=== PATIENT | female | born 1940 | race Caucasian/White ===

== ENCOUNTER 2018-11-14 10:17 | Observation (INO) ==
[~2018-11-14 10:17] MED LIST: CLINDAMYCIN 600 MG/54 ML BAG IV SCH; LR 15ML/HR IV SCH
--- NOTE | 2018-11-14 10:46 | History & Physical Bridge Note ---
Date of Service November 14, 2018 History & Physical Bridge Note I have examined the patient, reviewed the History & Physical and in the interval since the performance of the History & Physical I have noted the following changes of clinical significance: no changes noted
--- NOTE | 2018-11-14 10:47 | Pre Anesthesia Assessment ---
Date of Service November 14, 2018 Pre Sedation Assessment Cardiovascular + regular rhythm and + bradycardic Respiratory normal respiratory effort, lungs clear to auscultation Pre-Sedation Airway Assessment Smoking Status: Never smoker Hx Sleep Apnea: No Hx Difficult Intubation: No Short, Thick Neck: No Thyromental Distance: < 3.5 Finger Breadths Oral Cavity: + WNL Mallampati Class: II ASA: ASA3 Procedure Planning Contraindications for Sedation: none Current Medications Reviewed: Yes Notes The planned sedation has been discussed with the patient. Informed Consent was obtained. I have identified the patient, determined the appropriateness of sedation and have assessed the patient immediately prior to the procedure. All medicine(s) and interventions are by my order.
[2018-11-14] MEDS ORDERED: BUPIVACAINE 0.5 % 5 MG/1 ML PF 10ML VIAL ONE (11:10)
[2018-11-14] MEDS ORDERED: BACITRACIN INJ 50,000 UNIT VIAL ONE (11:10)
[2018-11-14] MEDS ORDERED: LIDOCAINE HCL 1% 20 ML VIAL ONE (11:10)
[2018-11-14] MEDS ORDERED: MIDAZOLAM HCL 5 MG/ML 1 ML VIAL ONE (11:52)
[2018-11-14] MEDS ORDERED: fentaNYL citrate 100 MCG/2 ML VIAL ONE ×2 (11:52→12:34)
[2018-11-14] MEDS ORDERED: MIDAZOLAM HCL 1 MG/ML 2ML VIAL ONE ×2 (12:36→13:28)
[2018-11-14] MEDS ORDERED: ACETAMINOPHEN 325 MG TAB PO PRN (13:57)
[2018-11-14] MEDS ORDERED: OXYCODONE/ACETAMINOPHEN 5mg/325mg TAB PO PRN (13:57)
--- NOTE | 2018-11-14 13:59 | Operative Report ---
Post Operative Report Pre & Post Diagnosis intermittent 2nd degree AV block Mobitz Type 2 with near syncope Operation Date: 11/14/18 12:00 <No data on this case meets the specified criteria> Procedure Operation Date: 11/14/18 12:00 Actual Procedures p Pacer with A/V Leads (Dual) - Clarisse Ba DO peripheral venogram Surgeon Clarisse Ba, Business Account Leader none Estimated Blood Loss 30 Findings Consistent with Post-Op Diagnosis Specimens none Description of Procedure see official report I attest to the content of the Intraoperative Record and any orders documented therein. Any exceptions are noted below.
--- NOTE | 2018-11-14 13:59 | Post Anesthesia Assessment ---
Date of Service November 14, 2018 Post Sedation Assessment Vital Signs Temp Pulse Resp BP Pulse Ox 11/14/18 10:56 36.6 C 66 16 126/77 94 Recovery Score Activity: Moves 4 extremities Respiration: Deep Breath/Cough Circulation: +/-20% PreAnes Value Consciousness: Fully Awake Oxygen Saturation: > 92% On Room Air Discharge Sedation Level of Care: Fast Track Phase II Post Sedation Plan On clinical assessment, the patient appears to have tolerated the sedation without complications. Patient is recovering as anticipated. Patient will continue to be monitored by nursing and may be discharged when sedation discharge criteria are met per below protocol. Upon Completions of procedure and additional 15 minutes continue every 5 minute vital signs and the P.A.R. score; then discharge to a Phase I or Fast Track to Phase II per the following guidelines: * Discharge Patient to appropriate Phase II area if PAR is 8 or greater or return to pre- procedure baseline. The post - procedure orders will be as directed. * If PAR score is less than 8 or not return to pre-procedure baseline then patient will follow Phase I monitoring till PAR is reached for Phase II. The Phase I may be done in procedure room or may call to secure a Phase I area. * If naloxone or flumazenil are used for reversal, hold in Phase I for continued monitoring from when last reversal dose was given for a minimum of 60 minutes or longer pending the nurse and/or physician discretion of patient condition before discharge to Phase II. Please call the Sedation Physician to re-evaluate and complete post-note for discharge to Phase II area. Do NOT discharge from procedure sedation or Phase 1 until post- sedation evaluation note is complete by procedure /sedation MD Sedation Discharge Instructions to be given to the patient at discharge to home.
--- NOTE | 2018-11-14 14:04 | Discharge Summary ---
Date of Service November 14, 2018 Admission HPI pt admitted for elective pacemaker due to intermittent 2nd degree AV block. Monitored overnight and discharged home. Admission Exam Per Admitting Provider aaox3, NAD NC/AT, EOMI Supple No JVD Nrl S1/S2, No murmur CTA b/l no w/r/r soft nt/nd no LE edema b/l skin intact no focal deficits Principal Diagnosis Principal Diagnosis Intermittent 2nd degree AV block Mobitz Type II s/p ppm Discharge Exam aaox3, NAD NC/AT, EOMI Supple No JVD Nrl S1/S2, No murmur CTA b/l no w/r/r soft nt/nd no LE edema b/l skin intact no focal deficits left pectoral incision intact, no hematoma mild ecchymosis ENMT Mallampati Class: II Respiratory normal respiratory effort, lungs clear to auscultation Cardiovascular Rate/Rhythm: regular rhythm and + bradycardic Discharge Data Allergies Allergy/AdvReac Type Severity Reaction Status Date / Time amoxicillin Allergy Unknown UNKNOWN Verified 11/14/18 10:47 hylan G-F 20 Allergy Unknown UNKNOWN Verified 11/14/18 10:47 Sulfa (Sulfonamide Allergy Unknown UNKNOWN Verified 11/14/18 10:47 Antibiotics) vancomycin Allergy Unknown UNKNOWN Verified 11/14/18 10:47 sulfasalazine Allergy Verified 11/14/18 10:47 Procedures Performed Operation Date: 11/14/18 12:00 Actual Procedures p Pacer with A/V Leads (Dual) - Clarisse Ba, DO peripheral venogram Ordered Studies 11/14/18 07:00 EP Lab Images for PACS ONCE Hospital Course (1) Second degree AV block, Mobitz type II: Total Time Total Time Spent Total Time Spent (In Minutes): 30 Total Time Includes: Examination of the Patient, Discharge Planning, Medication Reconciliation and Other Discharge Plan Discharge Items Patient Disposition: Home - Self-Care Reason For Visit: Intermittent 2nd AV Block Type II Discharge Diagnosis: intermittent 2nd degree AV block Type II Condition: Good Discharge Goals: Improve function Activity: As commented below Activity Comment: do not lift the left elbow over the left shoulder for 1 month Lifting: No more than 10 pounds Lifting Comment: do not lift more than 10 pounds with the left arm for 2 weeks Bathing: Keep incision dry Bathing Comment: can shower thursday 11/16 do not scrub the incision let water run over it Driving/Machine Use: Resume 1 day after discharge Non-emergency contact: Senior Structural Engineer Call non-emergency contact if: you have any medication questions Follow-up/Referrals: Antonio Luther [Primary Care Provider] - Diet: Heart Healthy Addtl Provider Instructions: device and wound check Thursday 11/23 it should already be scheduled Prescriptions: Continue Lipitor tablet 10 mg PO DAILY RF: 0 Calcium 600 with Vitamin D3 tablet 1 tab PO DAILY RF: 0 metoprolol tartrate tablet 25 mg PO DAILY RF: 0 Protonix 20 mg PO DAILY RF: 0 Multiple Vitamins tablet 1 mg PO DAILY RF: 0 Stand-Alone Forms: [facility] Discharge Orders: Discharge Order (Routine); Ordered 11/15/18 Ordered By: Clarisse Ba Admission Data Admit Date/Time: 11/14/18 13:22 Attending Provider: Clarisse Ba Admit Provider: Clarisse Ba Primary Care Provider: Antonio Luther Service: Telemetry
[2018-11-14] MEDS ORDERED: MoRPHine SULFATE 4 MG/ML 1 ML CARP\\VIAL IV PRN (14:20)
--- NOTE | 2018-11-15 01:08 | Operative Report ---
DATE OF OPERATION: 11/14/2018 PREOPERATIVE DIAGNOSES: Intermittent second-degree AV block, Mobitz type 2, near syncope. POSTOPERATIVE DIAGNOSES: Intermittent second-degree AV block, Mobitz type 2, near syncope. PROCEDURE: Dual chamber rate responsive permanent pacemaker under fluoroscopic guidance along with peripheral venogram. SURGEON: Clarisse Ba DO. HOUSE DIRECTOR: None. ANESTHESIA: Monitored conscious sedation administered under my supervision by Gera Spivey. Start time 1154, end time 1353. A total of 8 mg of Versed, 200 mcg of fentanyl. INTRAVENOUS FLUIDS: 100 mL BLOOD LOSS: 30 mL URINE OUTPUT: Not applicable. SPECIMENS: None. FINDINGS: See below. DRAINS: None. ANTIBIOTICS: 600 mg of clindamycin. IV CONTRAST: 10 mL INDICATIONS: This is a 78-year-old female with a past medical history for intermittent second-degree AV block, Mobitz type 2, near syncope, hypertension, hyperlipidemia, had a cardiac catheterization back in 2007 that was normal coronaries, gastroesophageal reflux disease, and osteoarthritis. Due to her near syncope and Mobitz type 2, she was recommended a pacemaker. CONSENT: Consent was obtained prior to the patient going into electrophysiology lab. The patient was informed of the risks, benefits, alternative to the procedure. Risks include but not limited to sudden cardiac , cardiac arrhythmia, cerebrovascular accident, myocardial infarction, injury to the blood vessels, chamber of the heart, lung, bleeding and infection. The patient understood these risks and agreed to the procedure as planned. Informed consent was obtained. DESCRIPTION OF PROCEDURE: The patient was brought into the electrophysiology lab in a fasting state. Patient was connected to continuous cardiac monitoring. A timeout was performed to ensure patient's identity and procedure. The patient was prepped and draped over the left infraclavicular space in normal surgical standard fashion. Monitored conscious sedation was given throughout the procedure for patient's comfort level. [place] precautions maintained throughout the procedure. 10 mL of 1% lidocaine, bupivacaine mixture were given in left deltopectoral groove. Incision was made in the left deltopectoral groove. Blunt dissection was performed down to identify cephalic vein. Cephalic vein was identified. It was very tiny. I did try to access it, but I was unable to pass a Glidewire so this was tied off with 0 silk ties. Next, we did a peripheral venogram using 10 mL of IV contrast diluted in 10 mL of saline followed by 20 mL flush to identify the axillary vein. Venous axillary access was obtained without any problems. A guidewire was inserted without any resistance. The 8-Estonian sheath was inserted over the guidewire without any resistance. Dilator was removed and a second guidewire was inserted through the 8-Estonian sheath to allow for retained venous access catheter. Guidewire was removed, flushed, a dilator reinserted over it and then the whole 8-Estonian sheath was inserted over one of the guidewires. The guidewire and dilator removed. The right ventricular pacing lead was then advanced into right ventricle. I did have to reposition the multiple times. Sometimes on the septum, sometimes on the low septum, sometimes out in the apex. It seemed that I kept hitting may be trabecula because my impedance kept getting high multiple times. Ultimately, I was finally able to right pass tricuspid valve to get the lead to drop into the myocardium and had adequate pacing. There was no diaphragmatic stimulation in high output pacing. The 8-Estonian sheath was peeled away and lead was fixated to pectoralis muscle using 0 silk suture. A second 8-Estonian sheath was inserted over the retained guidewire without any resistance. The guidewire and dilator removed. The right atrial lead was then advanced into right atrium and positioned to atrial appendage under fluoroscopic guidance. There was adequate pacing and sensing thresholds and no diaphragmatic stimulation in high output pacing.. The 8-Estonian sheath was peeled away and lead was fixated to pectoralis muscle using 0 silk suture. A pacemaker pocket was created over the pectoralis muscle within the pectoralis fascia using blunt dissection, the pocket was flushed with copious amounts of bacitracin and saline wash and inspected for hemostasis. The pulse generator was then attached to the leads, making sure that the pins were in appropriate position, passed, set screws and set screws were all tightened. The pulse generator was then placed in the pocket, making sure that the leads were lying flat beneath the device. A stay stitch using 0 silk suture was used to secure the device to pectoralis muscle. The incision was then closed in 3-layer fashion with 2-0 Vicryl interrupted suture followed by 3-0 Vicryl suture followed by 4-0 Monocryl running stitch. Dermabond was applied. EQUIPMENT: 1. Pulse generator is a [employer] XT DR NICKI Lin [id number], serial number [id number]. 2. Right atrial lead Medtronic 5076-52 cm, serial number [id number]. 3. Right ventricular lead, Medtronic 5076-58 cm, serial number [id number]. INTRAOPERATIVE TESTIN. Right atrial lead P waves 4.4 millivolts, impedance 760 ohms, threshold 0.6 volts at 0.9 milliamps. 2. Right ventricular lead, R waves 4.7 millivolts, impedance 975 ohms, threshold 0.4 volts at 0.4 milliamps. FINAL MEASUREMENTS THROUGH THE DEVICE: 1. Right atrial lead P waves 4 millivolts, impedance 684 ohms, threshold 0.75 volts at 0.4 milliseconds. 2. Right ventricular lead: R-wave 4 millivolts, impedance 703 ohms, threshold 0.5 volts at 0.4 milliseconds. FINAL PARAMETERS: MVP-R 60/130. Right atrial amplitude 3.5 volts, pulse width 0.4 milliseconds, sensitivity 0.3 millivolts. Right ventricular amplitude 3.5 volts, pulse width 0.4 milliseconds, sensitivity is 1.2 millivolts. IMPRESSION: Successful implantation of dual chamber rate responsive permanent pacemaker under fluoroscopic guidance along with peripheral venogram secondary to intermittent second-degree AV block, Mobitz type 2, and near syncope. PLAN: Monitor patient overnight a 12-lead ECG, chest x-ray. She is not allowed to lift left elbow or left shoulder for 1 month. She cannot lift more than 10 pounds with the left arm for 2 weeks. She can shower in 2 days. Let water run over the incision, do not scrub it. She should follow up next Monday on 11/23/2018 in our [facility] device clinic for device and wound check. She should continue her home medications. I attest to the content of the Intraoperative Record and any orders documented therein. Any exceptions are noted below. ROBBIN
--- NOTE | 2018-11-15 07:08 | XRay Report ---
XR chest 2V routine CLINICAL HISTORY: post implant COMPARISON STUDY: No previous studies for comparison. FINDINGS: The heart is normal in size. There is a left subclavian dual-chamber central venous pacemak er. There is no pneumothorax. Electrode position appears unremarkable. There is a prominent right car diophrenic angle fat pad.[ IMPRESSION: No evidence of pneumothorax status post placement of a left subclavian dual-chamber centr al venous pacemaker. Electronically signed by: Yifan Marquez M.D. 11/15/2018 7:06 AM
[2018-11-15 07:09] VITALS: PULSE 71; TEMP 97.9; O2SAT 95
[2018-11-15] MEDS ORDERED: METOPROLOL TARTRATE 25 MG TAB PO SCH (09:00)
[2018-11-15] MEDS ORDERED: PANTOprazole 40 MG TAB PO SCH (09:00)
[2018-11-15] MEDS ORDERED: MULTIVITAMIN TAB PO SCH (09:00)
[2018-11-15] MEDS ORDERED: CALCIUM 600MG + VIT D 400 IU TAB PO SCH (09:00)
[2018-11-15] MEDS ORDERED: ATORVASTATIN 10 MG TAB PO SCH (09:00)
[2018-11-15 10:45] VITALS: BP 114/74
== END 2018-11-15 11:55 | disposition home or self-care (01) ==
LOC: ASU 10:17 → 2S 10:17
DX: K21.9 Gastro-esophageal reflux disease without esophagitis; Z88.1 Allergy status to other antibiotic agents; E78.5 Hyperlipidemia, unspecified; R55 Syncope and collapse; Z79.899 Other long term (current) drug therapy; I44.1 Atrioventricular block, second degree; I10 Essential (primary) hypertension

== ENCOUNTER 2020-12-19 09:34 | Inpatient (IN) ==
[2020-12-19] MEDS ORDERED: SODIUM CHLORIDE 0.9% 500 ML IV STA (10:06)
--- NOTE | 2020-12-19 10:16 | XRay Report ---
XR chest 1V portable HISTORY: Atypical Chest Pain COMPARISON: 11/15/2018. FINDINGS: No pneumothorax. No pleural effusions. The heart is top normal in size. There is a left-neda ed dual-chamber pacemaker. There is a linear scarlike density within the left midlung zone, unchanged . No new focal lung consolidations to suggest pneumonia. No evidence for pulmonary edema. IMPRESSION: No significant change compared to the prior study. No acute process. ACT 112: Negative or not required by law. Electronically signed by: Mikhail Borwn M.D. 12/19/2020 10:14 AM
[2020-12-19 11:13] LABS: Basophils # (auto) 0.01 K/uL (0-0.2); Basophils % (auto) 0.1 %; Eosinophils # (auto) 0.04 K/uL (0-0.5); Eosinophils % (auto) 0.4 %; Hematocrit (blood only) 35.7 % (37-47); Hemoglobin 12.4 g/dL (12.0-16.0); Lymphocytes # (auto) 0.48 K/uL (1.2-3.4); Lymphocytes % (auto) 5.1 %; Mean Corpuscular Hemoglobin 32.4 pg (25-34); Mean Corpuscular Hgb Conc 34.7 g/dL (32-36); Mean Corpuscular Volume 93.2 fL (80-100); Mean Platelet Volume 10.2 fL (7.4-10.4); Monocytes # (auto) 0.43 K/uL (0.11-0.59); Monocytes % (auto) 4.5 %; Neutrophils % (auto) 89.9 %; Platelet Count 196 K/uL (130-400); RDW Coefficient of Variation 12.8 % (11.5-14.5); RDW Standard Deviation 43.9 fL (36.4-46.3); Red Blood Count 3.83 M/uL (4.2-5.4); White Blood Count 9.46 K/uL (4.8-10.8)
[2020-12-19 11:15] LABS: BUN Creatinine Ratio 19.2 (10-20); Blood Urea Nitrogen 12 mg/dl (7-18); Calcium 6.3 mg/dl (8.5-10.1); Carbon Dioxide 19 mmol/L (21-32); Chloride 117 mmol/L (98-107); Est GFR (African American) 99.4; Est GFR (Non-African American) 85.8; Glucose 98 mg/dl (70-99); Lipase 87 U/L (73-393); Sodium 142 mmol/L (136-145); Troponin I 0.019 ng/ml (0-0.045)
[2020-12-19 11:27] LABS: INR 1.1 (0.9-1.1); Partial Thromboplastin Ratio 1.1; Partial Thromboplastin Time 28.2 Seconds (21.0-31.0); Prothrombin Time 10.9 Seconds (9.0-12.0)
[2020-12-19 11:41] LABS: Magnesium 2.1 mg/dl (1.8-2.4); Potassium 4.4 mmol/L (3.5-5.1)
[2020-12-19 11:43] LABS: D Dimer 740 ug/L FEU (0-500)
[2020-12-19] MEDS ORDERED: OPTIRAY 320 125ml IV ONE (12:42)
--- NOTE | 2020-12-19 12:56 | Emergency Department Note ---
History of Present Illness General Chief Complaint: Chest Pain Time Seen by Provider: 12/19/20 09:38 History of Present Illness Provider Complaint: chest pain Time: 05:00 Duration: improved Onset: during rest Pain Location: substernal Pain Radiation: LUE Severity: moderate Current Pain Intensity: 2 Quality: + tightness Exacerbated By: + nothing Context: no recent illness, no recent surgery, no recent travel, no tr auma/injury and no history of DVT/PE Associated symptoms: + nausea, + vomiting, + diaphoresis and + dyspnea Treatments prior to arrival: aspirin, nitroglycerin and other (zofran, adenosine 6 mg IVP) Patient reports her symptoms began this morning at 5 AM. She does state that since she has been having nausea vomiting and diarrhea since she got her Covid vaccine. She does not report any melena or hematochezia. No hematemesis coffee-ground emesis or bilious vomiting. Patient does report she felt very sweaty this morning. She also states that she has been having increasing shortness of breath with exertion. Patient did call EMS who brought her to the emergency department. EMS did give the patient 1 sublingual nitro, Zofran, and aspirin. EMS also noted the patient had a heart rate about 150 so they did give her adenosine 6 mg IV push. Home Medications Medication Instructions Recorded Confirmed Type albuterol sulfate [Proventil HFA] 1 puff INHALATION QID PRN 03/16/20 12/19/20 History atorvastatin 10 mg PO HS 03/16/20 12/19/20 History cholecalciferol (vitamin D3) 25 mcg PO QAM 03/16/20 12/19/20 History [Vitamin D3] fluticasone propion-salmeterol 1 inh INHALATION BID PRN 03/16/20 12/19/20 History [Advair Diskus] metoprolol tartrate 25 mg PO HS 03/16/20 12/19/20 History multivitamin 1 tab PO QAM 03/16/20 12/19/20 History pantoprazole 20 mg PO QAM 03/16/20 12/19/20 History aspirin [Aspir-81] 81 mg PO HS 12/19/20 12/19/20 History Allergies Allergy/AdvReac Type Severity Reaction Status Date / Time amoxicillin Allergy Unknown UNKNOWN Verified 12/19/20 10:15 hylan G-F 20 Allergy Unknown UNKNOWN Verified 12/19/20 10:15 Sulfa (Sulfonamide Allergy Unknown UNKNOWN Verified 12/19/20 10:15 Antibiotics) vancomycin Allergy Unknown UNKNOWN Verified 12/19/20 10:15 sulfasalazine Allergy Unknown Verified 12/19/20 10:15 Past Med/Surg History Medical History (Updated 12/19/20 @ 13:27 by Angel Cuevas) Bilateral carpal tunnel syndrome Chronic obstructive pulmonary disease doesn't use res. inh. only flare ups during summer GERD (gastroesophageal reflux disease) Hiatal hernia with surgical repair History of diverticulitis History of implanted metallic device L ear metal piston HLD (hyperlipidemia) Hypertension Left hip pain Pacemaker [employer]> last checked over phone January 2020. first placed Nov 2018. Second degree AV block, Mobitz type II follows Dr. 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: No Beliefs That Will Affect Care: None Current Living Situation: Alone Feels Safe at Home: Yes Assistive Devices: Glasses Review of Systems A total of 10 systems reviewed and were otherwise negative Physical Exam Vital Signs Vital Signs - 24 hr 12/19/20 09:52 12/19/20 10:08 12/19/20 11:22 Temperature 36.9 C Temperature Source Oral Pulse Rate 94 H Pulse Rate [Apical] 67 Respiratory Rate 18 18 Blood Pressure 115/68 Blood Pressure [Right Arm] 102/54 L Blood Pressure Mean 83 Blood Pressure Mean [Right Arm] 70 Pulse Oximetry 95 98 95 Oxygen Delivery Method Room Air Room Air Room Air Sepsis Recent Fever Within 48 Hours No Sepsis New/Unexplained Change in Mental Status N/A Sepsis Action Taken by Nursing No Action Required 12/19/20 12:54 Temperature Temperature Source Pulse Rate Pulse Rate [Apical] 69 Respiratory Rate 18 Blood Pressure Blood Pressure [Right Arm] 108/49 L Blood Pressure Mean Blood Pressure Mean [Right Arm] 68 Pulse Oximetry 95 Oxygen Delivery Method Room Air Sepsis Recent Fever Within 48 Hours Sepsis New/Unexplained Change in Mental Status Sepsis Action Taken by Nursing Physical Exam GENERAL: She is oriented to person, place, and time. She appears well-developed and well-nourished. She does not appear distressed. HENT: Exam performed. -Head: Normocephalic and atraumatic. -Right Ear: External ear normal. No mastoid tenderness. -Left Ear: External ear normal. No mastoid tenderness. -Mouth/Throat: The oropharynx is clear and moist. No trismus in the jaw. No dental abscesses or uvula swelling. No oropharyngeal exudate or tonsillar abscesses. EYES: Conjunctivae and EOM are normal. Pupils are equal, round, and reactive to light. Right eye exhibits no discharge. Left eye exhibits no discharge. No scleral icterus. NECK: Normal range of motion. Neck supple. No JVD present. No spinous process tenderness present. No carotid bruit present. No rigidity. No tracheal deviation and normal range of motion present. No Brudzinski's sign and no Kernig's sign noted. CV: Normal rate, regular rhythm, normal heart sounds and intact distal pulses. There is no peripheral edema. Palpable radial pulses bue. PULM/CHEST: Effort normal and breath sounds normal. No respiratory distress. No stridor. She has no wheezes. She has no rales. -Chest Wall: She exhibits no tenderness. ABD: The abdomen is soft. Bowel sounds are normal. She has no distension. No mass is present. There is no tenderness. There is no rebound, no guarding, no Gomez's sign and no tenderness at McBurney's point. Rovsig negative MUSC/SKEL: Normal range of motion. There is no peripheral edema, tenderness or deformity. LYMPH: No cervical adenopathy. NEURO: She is alert and oriented to person, place, and time. She has normal strength. No cranial nerve deficit or sensory deficit. Coordination and gait normal. GCS eye subscore is 4. GCS verbal subscore is 5. GCS motor subscore is 6. Cerebellar tests wnl. SKIN: Skin is warm and dry. She is not diaphoretic. PSYCH: She has a normal mood and affect. Behavior is normal. Judgment and thought content normal. Course Course 937: The patient was evaluated in room C6. A complete history and physical exam was performed Cardiac monitoring: An order was placed for continuous cardiac monitoring. The monitor shows a rate of 90 with sinus rhythm 1325: Vital signs stable. Labs are within normal limits with exception of an elevated D-dimer. CTA negative for PE. Given the patient's symptoms, history, and age thought that the patient should be brought into the hospital for rule out ACS. Her nausea vomiting diarrhea could be due to her second dose of the Covid vaccine. I did discuss the patient's case with the patient and she is in agreement. She has a speak with her son. I spoke with her son Elieser [phone] and he is agreement that the patient should be admitted to the hospital. He also makes note that the patient's , his father, approximately 1 year ago to this date and thinks that stress could be causing her chest pain also. I discussed the case with [facility] hospitalist Annamaria who stated to admit to Dr. Rios. Annamaria stated to still get a Covid swab and the patient. Administered Medications Discontinued Medications Sodium Chloride (Nss) 500 mls @ 999 mls/hr IV .Q31M STA Stop: 12/19/20 10:36 Last Infusion: 12/19/20 11:51 Dose: 0 mls/hr Documented by: [id number] Admin: 12/19/20 10:29 Dose: 999 mls/hr Documented by: [id number] Ioversol (Optiray 320 125ml) 120 ml IV ONCE ONE Stop: 12/19/20 12:43 Last Admin: 12/19/20 12:42 Dose: 120 ml Documented by: [id number] Medical Decision Making Laboratory Data Result diagrams: 12/19/20 11:02 12/19/20 10:26 Labs: Lab Results 12/19/20 12/19/20 12/19/20 Range/Units 10:26 11:02 11:02 WBC 9.46 (4.8-10.8) K/uL RBC 3.83 L (4.2-5.4) M/uL Hgb 12.4 (12.0-16.0) g/dL Hct 35.7 L (37-47) % MCV 93.2 (80-100) fL MCH 32.4 (25-34) pg MCHC 34.7 (32-36) g/dL RDW Std Deviation 43.9 (36.4-46.3) fL RDW Coeff of Micky 12.8 (11.5-14.5) % Plt Count 196 (130-400) K/uL MPV 10.2 (7.4-10.4) fL Immature Gran % (Auto) 0.0 % Neut % (Auto) 89.9 % Lymph % (Auto) 5.1 % [place] % (Auto) 4.5 % Eos % (Auto) 0.4 % Baso % (Auto) 0.1 % Neut # (Auto) 8.50 H (1.4-6.5) K/uL Lymph # (Auto) 0.48 L (1.2-3.4) K/uL [place] # (Auto) 0.43 (0.11-0.59) K/uL Eos # (Auto) 0.04 (0-0.5) K/uL Baso # (Auto) 0.01 (0-0.2) K/uL Immature Gran # (Auto) 0.00 (0.00-0.02) K/uL PT 10.9 (9.0-12.0) Seconds INR 1.1 (0.9-1.1) APTT 28.2 (21.0-31.0) Seconds PTT Ratio 1.1 D-Dimer (0-500) ug/L FEU Sodium 142 (136-145) mmol/L Potassium 4.4 (3.5-5.1) mmol/L Chloride 117 H (98-107) mmol/L Carbon Dioxide 19 L (21-32) mmol/L Anion Gap 6.0 (3-11) BUN 12 (7-18) mg/dl Creatinine 0.62 (0.6-1.2) mg/dl Est Cr Clr Drug Dosing Not Reportable Est GFR ( Amer) 99.4 Est GFR (Non-Af Amer) 85.8 BUN/Creatinine Ratio 19.2 (10-20) Glucose 98 (70-99) mg/dl Calcium 6.3 L (8.5-10.1) mg/dl Magnesium 2.1 (1.8-2.4) mg/dl Troponin I 0.019 (0-0.045) ng/ml Lipase 87 (73-393) U/L 12/19/20 Range/Units 11:02 WBC (4.8-10.8) K/uL RBC (4.2-5.4) M/uL Hgb (12.0-16.0) g/dL Hct (37-47) % MCV (80-100) fL MCH (25-34) pg MCHC (32-36) g/dL RDW Std Deviation (36.4-46.3) fL RDW Coeff of Micky (11.5-14.5) % Plt Count (130-400) K/uL MPV (7.4-10.4) fL Immature Gran % (Auto) % Neut % (Auto) % Lymph % (Auto) % [place] % (Auto) % Eos % (Auto) % Baso % (Auto) % Neut # (Auto) (1.4-6.5) K/uL Lymph # (Auto) (1.2-3.4) K/uL [place] # (Auto) (0.11-0.59) K/uL Eos # (Auto) (0-0.5) K/uL Baso # (Auto) (0-0.2) K/uL Immature Gran # (Auto) (0.00-0.02) K/uL PT (9.0-12.0) Seconds INR (0.9-1.1) APTT (21.0-31.0) Seconds PTT Ratio D-Dimer 740 H* (0-500) ug/L FEU Sodium (136-145) mmol/L Potassium (3.5-5.1) mmol/L Chloride (98-107) mmol/L Carbon Dioxide (21-32) mmol/L Anion Gap (3-11) BUN (7-18) mg/dl Creatinine (0.6-1.2) mg/dl Est Cr Clr Drug Dosing Est GFR ( Amer) Est GFR (Non-Af Amer) BUN/Creatinine Ratio (10-20) Glucose (70-99) mg/dl Calcium (8.5-10.1) mg/dl Magnesium (1.8-2.4) mg/dl Troponin I (0-0.045) ng/ml Lipase (73-393) U/L Imaging Data Chest x-ray: Radiologist's impression: XR chest 1V portable HISTORY: Atypical Chest Pain COMPARISON: 11/15/2018. FINDINGS: No pneumothorax. No pleural effusions. The heart is top normal in size. There is a left-sided dual-chamber pacemaker. There is a linear scarlike d ensity within the left midlung zone, unchanged. No new focal lung consolidations to suggest pneumonia. No evidence for pulmonary edema. IMPRESSION: No significant change compared to the prior study. No acute process. ACT 112: Negative or not required by law. Electronically signed by: Mikhail Brown M.D. 12/19/2020 10:14 AM Dictated: 12/19/20 1014 Transcribed: 12/19/[address] scan - chest: Radiologist's impression: CHEST CTA for PULMONARY ARTERIES CT DOSE: 325.16 mGy.cm HISTORY: Atypical chest pain. TECHNIQUE: Multiaxial CT images of the chest were performed following the intravenous administration of contrast to evaluate the pulmonary arteries. Maximal intensity projection images were also obtained. A dose lowering technique was utilized adhering to the principles of ALARA. COMPARISON STUDY: None. FINDINGS: Moderate calcified plaque within the left coronary artery. There is left-sided pacemaker. Normal caliber thoracic aorta with no evidence for dissection. The heart is borderline enlarged. No pleural or pericardial effusions. No filling defects within the pulmonary arteries to suggest pulmonary embolus. No mediastinal or hilar lymphadenopathy. Limited views of the upper abdomen demonstrate normal liver, spleen, and adrenal glands. Normal caliber esophagus. No suspicious lytic or blastic osseous lesions. No pneumothorax. The central airways are patent. Linear densities within the left mid to lower lung zone favor scarring or subsegmental atelectasis. Otherwise, no focal lung consolidations to suggest pneumonia. IMPRESSION: No evidence for pulmonary embolus. ACT 112: Negative or not required by law. Electronically signed by: Mikhail Brown M.D. 12/19/2020 12:56 PM Dictated: 12/19/20 1249 Transcribed: 12/19/20 1249 ECG Data Indication: chest pain Rate (beats per minute): 92 Rhythm: normal sinus Findings: no ST depression, no ST elevation and no prolonged QT MDM Narrative 0938: The patient was evaluated in room C6. A complete history and physical exam was performed Cardiac monitoring: An order was placed for continuous cardiac monitoring. The monitor shows a rate of 90 with sinus rhythm 1325: Vital signs stable. Labs are within normal limits with exception of an elevated D-dimer. CTA negative for PE. Given the patient's symptoms, history, and age thought that the patient should be brought into the hospital for rule out ACS. Her nausea vomiting diarrhea could be due to her second dose of the Covid vaccine. I did discuss the patient's case with the patient and she is in agreement. She has a speak with her son. I spoke with her son Elieser [phone] and he is agreement that the patient should be admitted to the hospital. He also makes note that the patient's , his father, appr oximately 1 year ago to this date and thinks that stress could be causing her chest pain also. I discussed the case with [facility] hospitalist Annamaria who stated to admit to Dr. Rios. Annamaria stated to still get a Covid swab and the patient. Impression & Plan Chest pain Discharge Plan Visit Data Chief Complaint: Chest Pain ED Provider: Angel Cuevas Discharge Problem: Chest pain Patient Disposition: Being Evaluated by Hospitalist Forms Stand Alone Forms: My [facility] [place] [employer] Prescriptions Prescriptions: No Action multivitamin Tablet 1 tab PO QAM RF: 0 atorvastatin 10 mg Tablet 10 mg PO HS RF: 0 pantoprazole 20 mg Tablet,Delayed Release (Dr/Ec) 20 mg PO QAM RF: 0 fluticasone propion-salmeterol [Advair Diskus] 100-50 mcg/dose Blister With De vice 1 inh INHALATION BID PRN (Reason: Shortness Of Breath) RF: 0 metoprolol tartrate 25 mg Tablet 25 mg PO HS RF: 0 cholecalciferol (vitamin D3) [Vitamin D3] 25 mcg (1,000 unit) Tablet 25 mcg PO QAM RF: 0 albuterol sulfate [Proventil HFA] 90 mcg/actuation Hfa Aerosol Inhaler 1 puff INHALATION QID PRN (Reason: Shortness Of Breath) RF: 0 aspirin [Aspir-81] 81 mg Tablet,Delayed Release (Dr/Ec) 81 mg PO HS RF: 0 Referrals Referrals: Antonio Luther [Primary Care Provider] - Discharge Problem: Chest pain Qualifiers: Chest pain type: unspecified Qualified Code(s): R07.9 - Chest pain, unspecified
--- NOTE | 2020-12-19 12:58 | CT Scan Report ---
CHEST CTA for PULMONARY ARTERIES CT DOSE: 325.16 mGy.cm HISTORY: Atypical chest pain. TECHNIQUE: Multiaxial CT images of the chest were performed following the intravenous administration of contrast to evaluate the pulmonary arteries. Maximal intensity projection images were also obtaine d. A dose lowering technique was utilized adhering to the principles of ALARA. COMPARISON STUDY: None. FINDINGS: Moderate calcified plaque within the left coronary artery. There is left-sided pacemaker. N ormal caliber thoracic aorta with no evidence for dissection. The heart is borderline enlarged. No pl eural or pericardial effusions. No filling defects within the pulmonary arteries to suggest pulmonary embolus. No mediastinal or hilar lymphadenopathy. Limited views of the upper abdomen demonstrate nor mal liver, spleen, and adrenal glands. Normal caliber esophagus. No suspicious lytic or blastic osseo us lesions. No pneumothorax. The central airways are patent. Linear densities within the left mid to lower lung zone favor scarring or subsegmental atelectasis. Otherwise, no focal lung consolidations t o suggest pneumonia. IMPRESSION: No evidence for pulmonary embolus. ACT 112: Negative or not required by law. Electronically signed by: Mikhail Brown M.D. 12/19/2020 12:56 PM
--- NOTE | 2020-12-19 14:12 | History & Physical Report ---
Date of Service December 19, 2020 Assessment & Plan (1) Chest pain: Pt is 80 y/o F with PMH Mobitz type II second-degree AV block s/p pacemaker in 2019, HTN, dyslipidemia, GERD, depression presented to ER with complaint of chest tightness this morning with associated diaphoresis and dizziness. Denies palpitations, SOB, or syncope. EMS gave patient Zofran, 4 baby aspirin, 1 spray sublingual nitro. It is reported patient was noted to have tachycardia 150 and was given adenosine for suspected SVT. Pt with improvement symptoms since. No current CP, palpitations, SOB, N/V, diaphoresis or dizziness In ER vitals stable, Initial troponin: 0.019, EKG without acute ST changes. D- dimer: 740, CTA negative for PE. TSH: 0.78 DDX: arrhythmia, ACS Monitor on tele Pacemaker interrogation Will trend troponin Echo lipid panel in am, continue statin continue aspirin and metoprolol Nitro prn CP and repeat EKG for CP Cardiology consult (2) Vomiting and diarrhea: Dehydration 12/17/20 received second dose of COVID 19 vaccine and following day with chills, temp 100.1F. 3 episodes vomiting and 5 episodes diarrhea. No hematochezia, melena, hematemesis, abdominal pain. Symptoms improved currently Negative COVID 19 test upon admission Gentle IVF Clear liquid diet for now If recurrent diarrhea consider stool studies, c-diff testing (3) Second degree AV block, Mobitz type II: S/P pacemaker Pacemaker interrogation (4) Hypertension: Continue metoprolol (5) HLD (hyperlipidemia): Continue statin (6) GERD (gastroesophageal reflux disease): Continue PPI (7) Depression: Continue fluoxetine DVT Prophylaxis -Lovenox SQ DNR/DNI as per discussion with pt Follows with Dr Luther for routine care Pt was seen and care coordinated with Dr Raza. See addendum History of Present Illness Chief Complaint: Chest tightness Primary Care Provider: Antonio Luther Pt is 80 y/o F with PMH Mobitz type II second-degree AV block s/p pacemaker in 2019, HTN, dyslipidemia, GERD, depression presented to ER with complaint of chest tightness this morning. Patient states 2 days ago received her second dose of COVID 19 vaccine. Complains of sore left arm from the vaccine and yesterday had chills and temp of 100.1F. She states last night started with nausea and vomiting x3 episodes. Reports had 5 episodes of diarrhea. Took 2 Pepto-Bismol during the night. This morning woke up was ambulating through her house and felt lightheaded, diaphoretic, and noted chest tightness described as "rope wrapped around chest and back squeezing". Denies any radiating pain. Denies any associated shortness of breath or palpitations. Chest tightness continued so called EMS. EMS gave patient Zofran, 4 baby aspirin, 1 spray sublingual nitro. It is reported patient was noted to have tachycardia 150 and was given adenosine for suspected SVT. Patient states when medication was administered she became short of breath and shortly after shortness of breath resolved and chest tightness resolved. Denies any dizziness while resting in bed currently. Denies any further nausea, vomiting or diarrhea this morning. Denies any symptoms from 1st COVID 19 Vaccine. She does report she has not started intermittent shortness of breath with raking over the past year without any associated chest pain or dizziness. Drinks 1-2 cups coffee daily. Denies alcohol use or OTC decongestant use. Denies hematemesis, hematochezia, QUIROZ, syncope, vision changes, neck pain, orthopnea, palpitations, cough, sore throat, choking, otalgia, rhinorrhea, abdominal pain, paresthesias, extremity weakness, extremity edema, rashes, urinary symptoms. Denies ill contacts. Allergies Allergy/AdvReac Type Severity Reaction Status Date / Time amoxicillin Allergy Unknown UNKNOWN Verified 12/19/20 10:15 hylan G-F 20 Allergy Unknown UNKNOWN Verified 12/19/20 10:15 Sulfa (Sulfonamide Allergy Unknown UNKNOWN Verified 12/19/20 10:15 Antibiotics) vancomycin Allergy Unknown UNKNOWN Verified 12/19/20 10:15 sulfasalazine Allergy Unknown Verified 12/19/20 10:15 Home Medications Medication Instructions Recorded Confirmed Type albuterol sulfate [Proventil HFA] 1 puff INHALATION QID PRN 03/16/20 12/19/20 History atorvastatin 10 mg PO HS 03/16/20 12/19/20 History cholecalciferol (vitamin D3) 25 mcg PO QAM 03/16/20 12/19/20 History [Vitamin D3] multivitamin 1 tab PO QAM 03/16/20 12/19/20 History pantoprazole 20 mg PO QAM 03/16/20 12/19/20 History aspirin [Aspir-81] 81 mg PO HS 12/19/20 12/19/20 History fluoxetine 10 mg PO DAILY 12/19/20 12/19/20 History metoprolol succinate 25 mg PO HS 12/19/20 12/19/20 History Past Med/Surg History Medical History (Updated 12/19/20 @ 14:33 by Nida Sin PA-C) Bilateral carpal tunnel syndrome Chronic obstructive pulmonary disease doesn't use res. inh. only flare ups during summer Depression GERD (gastroesophageal reflux disease) Hiatal hernia with surgical repair History of diverticulitis History of implanted metallic device L ear metal piston HLD (hyperlipidemia) Hypertension Left hip pain Pacemaker Medtronic> last checked over phone January 2020. first placed Nov 2018. Second degree AV block, Mobitz type II follows Dr. Lizbeth Adam > pacer placed due to this Surgical History History of breast biopsy left > benign History of colonoscopy History of elbow surgery left History of esophagogastroduodenoscopy (EGD) History of hysterectomy History of surgery on wrist bilat for breaks from fall History of tooth extraction History of total knee replacement bilat Hx of cardiac cath 20 yrs ago> no issues> no stents Family History (Updated 12/19/20 @ 14:30 by Nida Sin PA-C) Mother Diabetes Stroke Sister Breast cancer Lung cancer Social History (Updated 12/19/20 @ 14:29 by Nida Sin PA-C) Smoking Status: Never smoker Second Hand Exposure: No; Do You Dip or Chew Tobacco: No; Tobacco Cessation Education Requested by Patient: No Hx Alcohol Use: No Hx Substance Use: No Preferred Language: Bermudian Communication Ability: Effective Human Relations Teacher Required: No Beliefs That Will Affect Care: None marital status: / Current Living Situation: Alone and Family Other Information That Helps Us Care for You: No Feels Safe at Home: Yes Safety Concerns: Feels Safe At This Time Assistive Devices: Walker Review of Systems Review of Systems: All systems reviewed & are unremarkable except as noted in HPI & below Physical Exam Physical Exam: General: no distress, overweight Head: normocephalic, atraumatic Eyes: PERRL, EOM's intact, conjunctiva non-injected, anicteric ENT: normal inspection external ears, nose, mucous membranes dry Neck: supple, trachea midline Lungs: clear, no respiratory distress, no wheezing/rhonchi/rales CV: RRR, no murmur, no pretibial edema Abd: normal BS, soft, non-tender Ext: no cyanosis, no calf tenderness Neuro: A&O x 3, no focal deficits noted, normal affect Skin: warm, dry Results & Data Results & Data ([facility]) Vital Signs (Past 12 Hours) Vital Signs Temp Pulse Pulse Resp BP BP Pulse Ox 12/19/20 12:54 69 18 108/49 L 95 12/19/20 11:22 67 18 102/54 L 95 12/19/20 10:08 98 12/19/20 09:52 36.9 C 94 H 18 115/68 95 Laboratory Results Short CBC 12/19/20 Range/Units 11:02 WBC 9.46 (4.8-10.8) K/uL Hgb 12.4 (12.0-16.0) g/dL Hct 35.7 L (37-47) % Plt Count 196 (130-400) K/uL BMP 12/19/20 10:26 Sodium 142 Potassium 4.4 Chloride 117 H Carbon Dioxide 19 L BUN 12 Creatinine 0.62 Glucose 98 Calcium 6.3 L Cardiac Enzymes 12/19/20 Range/Units 10:26 Troponin I 0.019 (0-0.045) ng/ml Diagnostic Findings CXR: IMPRESSION: No significant change compared to the prior study. No acute process. CTA CHEST: IMPRESSION: No evidence for pulmonary embolus. ECG Rhythm: sinus rhythm Code Status & VTE Plan VTE Prophylaxis Plan VTE Prophylaxis will be ordered: Yes Supervising Physician Co-Signing Physician Notes attending addendum : pt seen and examined , care co-ordniated with Nida Lopez PA-C pt presented with BUENO, angina symptom resolved after getting SL nitro by EMS no EKG change , troponin negative Physical exam: General: No acute distress, alert awake oriented x3 HEENT: PERRLA, EOMI, Heart: Regular S1-S2, no carotid bruit, no JVD, no lower extremity edema Lungs: Clear to auscultate, no wheeze or rales Abdomen: Soft nontender, no organomegaly Extremity: No cyanosis, no deformity, normal strength 5 out of 5 with upper and lower Neuro: No focal neurological deficit normal speech, normal visual field, Motor strength : normal both upper and lower extremity, sensation intact Psych: Alert awake oriented x3, normal affect Chest pain /rule out ACS : monitor in tele serial cardiac markers resting ECHO cardiology eval pt may need cardiac stress test ,will defer it to cardiology Hailey Raza MD (1) Chest pain Chest pain type: unspecified Qualified Code(s): R07.9 - Chest pain, unspecified
[2020-12-19] MEDS ORDERED: ACETAMINOPHEN 325 MG TAB PO PRN (16:08)
[2020-12-19] MEDS ORDERED: SODIUM CHLORIDE 0.9% 1000ML 1,000 ML IV SCH (16:08)
[2020-12-19] MEDS ORDERED: NITROGLYCERIN SL 0.4 MG/TAB TAB SL PRN (16:08)
[2020-12-19] MEDS ORDERED: PATIENT'S HEIGHT AND/OR WEIGHT NEEDED SCH (16:30)
[2020-12-19] MEDS ORDERED: ENOXAPARIN INJ 40 MG/0.4 ML SYR SQ SCH (18:00)
--- NOTE | 2020-12-19 20:17 | Communication Note ---
Date of Service: December 19, 2020 NSTEMI troponin bump noted 0.019 -> 0.190 no recurrence of chest pain admitted with angina symptoms pt started in IV heparin low dose no bolus , NPO past midnight follow serial troponin , resting ECHO orderd in am cardiology consulted , pt is ordered to be transferred to PCU /coronary care unit for possible ACS accordion repairer hospitalist and floor nurse updated Hailey Raza
[2020-12-19] MEDS ORDERED: HEPARIN 25000 UNIT/500 ML D5W IV ONE (20:28)
[2020-12-19] MEDS ORDERED: Heparin IV Adult Wt-Based Low-Dose *NO* Bolus Protocol IV SCH (20:30)
[2020-12-19] MEDS: HEPARIN SODIUM/DEXTROSE 25,000 UNITS/500 ML BAG IV SCH (20:31)
[2020-12-19] MEDS: ATORVASTATIN 10 MG TAB PO SCH (20:57)
[2020-12-19] MEDS: METOPROLOL SUCC 25MG EXT REL TAB PO SCH ×2 (20:57→21:42)
[2020-12-20 02:52] LABS: Hematocrit (blood only) 33.5 % (37-47); Hemoglobin 11.2 g/dL (12.0-16.0); Mean Corpuscular Hemoglobin 31.4 pg (25-34); Mean Corpuscular Hgb Conc 33.4 g/dL (32-36); Mean Corpuscular Volume 93.8 fL (80-100); Mean Platelet Volume 10.2 fL (7.4-10.4); Platelet Count 171 K/uL (130-400); RDW Coefficient of Variation 13.1 % (11.5-14.5); RDW Standard Deviation 45.3 fL (36.4-46.3); Red Blood Count 3.57 M/uL (4.2-5.4); White Blood Count 6.71 K/uL (4.8-10.8)
[2020-12-20 03:15] LABS: Partial Thromboplastin Time 51.3 Seconds (21.0-31.0)
[2020-12-20 03:19] LABS: Calcium 7.9 mg/dl (8.5-10.1); Creatinine Clr Calc Pharmacy 58.1 ml/min; Est GFR (African American) 95.5; Est GFR (Non-African American) 82.4; Potassium 3.8 mmol/L (3.5-5.1)
[2020-12-20] MEDS ORDERED: PERFLUTREN LIPID MICROSPHERE (DEFINITY) IV ONE (08:17)
[2020-12-20] MEDS: MULTIVITAMIN TAB PO SCH (09:29)
[2020-12-20] MEDS: PANTOprazole 40 MG TAB PO SCH (09:30)
[2020-12-20] MEDS: CHOLECALCIFEROL 1,000 UNITS 25 MCG TAB PO SCH (09:30)
[2020-12-20] MEDS: FLUoxetine HCL 10 MG CAP PO SCH (09:30)
--- NOTE | 2020-12-20 10:00 | Electrocardiogram Report ---
Test Reason : Blood Pressure : / mmHG Vent. Rate : 092 BPM Atrial Rate : 092 BPM P-R Int : 176 ms QRS Dur : 080 ms QT Int : 368 ms P-R-T Axes : 045 011 042 degrees QTc Int : 455 ms Normal sinus rhythm Normal ECG When compared with ECG of 14-NOV-2018 14:59, Sinus rhythm has replaced Electronic atrial pacemaker Vent. rate has increased BY 32 BPM Confirmed by Sreedhar Schilling ([id number]) on 12/20/2020 10:00:14 AM Referred By: REFERRED SELF Confirmed By:Sreedhar Schilling
--- NOTE | 2020-12-20 10:35 | Electrocardiogram Report ---
Test Reason : Blood Pressure : / mmHG Vent. Rate : 060 BPM Atrial Rate : 060 BPM P-R Int : 206 ms QRS Dur : 086 ms QT Int : 438 ms P-R-T Axes : 000 029 055 degrees QTc Int : 438 ms Atrial-paced rhythm Otherwise normal ECG When compared with ECG of 19-DEC-2020 09:44, (unconfirmed) Electronic atrial pacemaker has replaced Sinus rhythm Vent. rate has decreased BY 32 BPM Confirmed by Sreedhar Schilling ([id number]) on 12/20/2020 10:35:21 AM Referred By: REFERRED SELF Confirmed By:Sreedhar Schilling
--- NOTE | 2020-12-20 13:10 | Cardiology Consultation ---
Date of Consultation December 20, 2020 Assessment & Plan (1) Unstable angina: (2) GERD (gastroesophageal reflux disease): (3) HLD (hyperlipidemia): (4) Hypertension: (5) Vomiting and diarrhea: (6) Depression: (7) Second degree AV block, Mobitz type II: Given the patient's description of her progressive chest discomfort I am suspicious that she is suffering from unstable angina. She is currently symptom-free and has not a recurrence of her chest discomfort since receiving nitro by EMS. She has been started on low-dose heparin and will be continued. We will proceed with Lexiscan nuclear stress test in the a.m. and possible cardiac catheterization. This has been discussed with the patient and her son, Eric, via phone and they are in agreement with the plan. N.p.o. after midnight. Continue outpatient doses of aspirin, atorvastatin and metoprolol. History of Present Illness Reason for Consultation: Chest pain Requesting Physician: Dr. Raza Attending Physician: Hailey Raza MD History of Present Illness It was my pleasure to see Mrs. Cifuentes in cardiac consultation today December 20, 2020. She is a very pleasant 80-year-old woman who was previously followed with Dr. Hammer of our cardiology practice. She presented to [facility] on 12/19/2020 with complaints of chest pain. She states that for the last few days she is not been feeling very well. She has been having some nausea and vomiting and vague viral-like symptoms. Then on the morning of the after she awoke and was walking to the bathroom she developed chest pain. She described it as a significant pressure/squeezing sensation which she describes as someone tying a rope around her chest and squeezing. This was associated with diaphoresis and overall clamminess along with nausea. She denied any associated radiation of discomfort or shortness of breath. The discomfort persisted and EMS was summoned. She received aspirin and sublingual nitroglycerin from EMS and her chest discomfort subsided after receiving the nitroglycerin. Upon further questioning she admits that lately she is been having some issues with exertion. She notes particularly when doing yard work over the last few weeks she would develop tightness sensation in her upper chest and shoulders that would cause her to stop and rest. She states that the episode on the 23rd was the most severe discomfort she has had. Allergies Allergy/AdvReac Type Severity Reaction Status Date / Time amoxicillin Allergy Unknown UNKNOWN Verified 12/19/20 10:15 hylan G-F 20 Allergy Unknown UNKNOWN Verified 12/19/20 10:15 Sulfa (Sulfonamide Allergy Unknown UNKNOWN Verified 12/19/20 10:15 Antibiotics) vancomycin Allergy Unknown UNKNOWN Verified 12/19/20 10:15 sulfasalazine Allergy Unknown Verified 12/19/20 10:15 Home Medications Medication Instructions Recorded Confirmed Type albuterol sulfate [Proventil HFA] 1 puff INHALATION QID PRN 03/16/20 12/19/20 History atorvastatin 10 mg PO HS 03/16/20 12/19/20 History cholecalciferol (vitamin D3) 25 mcg PO QAM 03/16/20 12/19/20 History [Vitamin D3] multivitamin 1 tab PO QAM 03/16/20 12/19/20 History pantoprazole 20 mg PO QAM 03/16/20 12/19/20 History aspirin [Aspir-81] 81 mg PO HS 12/19/20 12/19/20 History fluoxetine 10 mg PO DAILY 12/19/20 12/19/20 History metoprolol succinate 25 mg PO HS 12/19/20 12/19/20 History Patient History Medical History Bilateral carpal tunnel syndrome Chronic obstructive pulmonary disease doesn't use res. inh. only flare ups during summer Depression GERD (gastroesophageal reflux disease) Hiatal hernia with surgical repair History of diverticulitis History of implanted metallic device L ear metal piston HLD (hyperlipidemia) Hypertension Left hip pain Pacemaker Medtronic> last checked over phone January 2020. first placed Nov 2018. Second degree AV block, Mobitz type II follows Dr. Lizbeth Adam > pacer placed due to this Surgical History History of breast biopsy left > benign History of colonoscopy History of elbow surgery left History of esophagogastroduodenoscopy (EGD) History of hysterectomy History of surgery on wrist bilat for breaks from fall History of tooth extraction History of total knee replacement bilat Hx of cardiac cath 20 yrs ago> no issues> no stents Family History Mother Diabetes Stroke Sister Breast cancer Lung cancer Social History Smoking Status: Never smoker Second Hand Exposure: No; Do You Dip or Chew Tobacco: No; Tobacco Cessation Education Requested by Patient: No Hx Alcohol Use: No Hx Substance Use: No Preferred Language: Azerbaijani Communication Ability: Effective Medical Technologist Microbiology Required: No Beliefs That Will Affect Care: None marital status: / Current Living Situation: Alone and Family Other Information That Helps Us Care for You: No Feels Safe at Home: Yes Safety Concerns: Feels Safe At This Time Assistive Devices: Walker Review of Systems Review of Systems: All systems reviewed & are unremarkable except as noted in HPI & below Physical Exam Physical Exam: General: Awake, alert and oriented x 3. No acute distress. HEENT: Normocephalic, atraumatic. Pupils equal, round and reactive to light and accommodation. Extraocular muscles are intact. Anicteric sclera. Moist mucous membranes. Neck: No JVD. No bruit. Cardiovascular: Regular. Positive S-4. Normal S-1 and S-2. No S-3. 3/6 holosystolic ejection murmur, 5th intercostal space, mid-clavicular line without radiation. No rubs. Pulmonary: Clear to auscultation bilaterally. No rales, rhonchi, or wheezing. Abdomen: Bowel sounds x 4, soft. No rebound, guarding or tenderness. No organomegaly. Extremities: No clubbing, cyanosis or edema. +2 pedal pulses bilaterally. Skin: Warm and dry. Results & Data ([facility]) Vital Signs (Past 12 Hours) Vital Signs Temp Pulse Pulse Resp BP Pulse Ox 12/20/20 11:10 36.9 C 61 16 110/52 L 95 12/20/20 07:32 36.8 C 61 18 131/66 94 12/20/20 03:31 36.8 C 61 17 120/60 94
--- NOTE | 2020-12-20 15:37 | Hospitalist Progress Note ---
Date of Service December 20, 2020 Assessment & Plan (1) Unstable angina: NSTEMI : presented with angina symptoms , BUENO exertion with past several days symptoms resolved after SL nitro mild elevation of troponin noted no recurrence of chest pain since admission appreciate input from Cardiology pt is scheduled for [place] cardiac stress test in AM NPO past midnight cont low dose IV heparin for now on Aspirin/beta james /statin already no further recurrence of symptoms cont to monitor in PCU (2) Second degree AV block, Mobitz type II: S/P pacemaker Full code DVT Prophylaxis on IV heparin wt based protocol Disposition : to home when medically stable Admission and Anticipated Discharge Date Admission Date: December 19, 2020 Subjective Follow up visit for chest pain /unstable angina /NSTEMI : no event overnight , slept well no recurrence of chest pain since admission no SOB or orthopnea no fever or chills or cough feels fine Review of Systems Review of Systems: All systems reviewed & are unremarkable except as noted in Subjective Physical Exam Physical Exam: Physical exam: General: No acute distress, alert awake oriented x3 HEENT: PERRLA, EOMI, Heart: Regular S1-S2, no carotid bruit, no JVD, no lower extremity edema Lungs: Clear to auscultate, no wheeze or rales Abdomen: Soft nontender, no organomegaly Extremity: No cyanosis, no deformity, normal strength 5 out of 5 with upper and lower Neuro: No focal neurological deficit normal speech, normal visual field, Motor strength : normal both upper and lower extremity, sensation intact Psych: Alert awake oriented x3, normal affect Results & Data Results & Data ([facility]) Vital Signs (Past 12 Hours) Vital Signs Temp Pulse Pulse Pulse Resp BP Pulse Ox 12/20/20 11:10 36.9 C 61 16 110/52 L 95 12/20/20 08:00 62 12/20/20 07:32 36.8 C 61 18 131/66 94
[2020-12-20] MEDS: ATORVASTATIN 10 MG TAB PO SCH (20:49)
[2020-12-20] MEDS: METOPROLOL SUCC 25MG EXT REL TAB PO SCH (20:49)
[2020-12-20] MEDS: ASPIRIN 81 MG ECTAB PO SCH (20:49)
[2020-12-21 06:15] LABS: Partial Thromboplastin Ratio 1.8
[2020-12-21 06:16] LABS: Partial Thromboplastin Time 48.3 Seconds (21.0-31.0)
[2020-12-21] MEDS: FLUoxetine HCL 10 MG CAP PO SCH (08:07)
[2020-12-21] MEDS: MULTIVITAMIN TAB PO SCH (08:07)
[2020-12-21] MEDS: PANTOprazole 40 MG TAB PO SCH (08:07)
[2020-12-21] MEDS: CHOLECALCIFEROL 1,000 UNITS 25 MCG TAB PO SCH (08:07)
[2020-12-21] MEDS: HEPARIN SODIUM/DEXTROSE 25,000 UNITS/500 ML BAG IV SCH (09:10)
[2020-12-21] MEDS ORDERED: REGADENOSON 0.4 MG/5 ML SYR IV ONE (11:04)
--- NOTE | 2020-12-21 12:50 | Cardiology Progress Note ---
Date of Service December 21, 2020 Assessment & Plan (1) Unstable angina: (2) GERD (gastroesophageal reflux disease): (3) HLD (hyperlipidemia): (4) Hypertension: (5) Vomiting and diarrhea: (6) Depression: (7) Second degree AV block, Mobitz type II: Given the patient's description of her progressive chest discomfort I am suspicious that she is suffering from unstable angina. She is currently symptom-free and has not a recurrence of her chest discomfort since receiving nitro by EMS. Lexiscan nuclear stress test performed this a.m. Patient with severe chest pain reproduced with Lexiscan injection, rates it 9 out of 10. States that this pain was more intense than the chest discomfort that brought her into the hospital. Stress test was not overwhelmingly ischemic, however, given her symptoms I do believe most prudent course of action will be to proceed with cardiac catheterization. I discussed this with the patient and her daughter, Evonne, who was at the bedside and they are in agreement. We will discontinue heparin drip. Remain n.p.o. for procedure. Continue outpatient doses of aspirin, atorvastatin and metoprolol. Admission and Anticipated Discharge Date Admission Date: December 19, 2020 Subjective Patient seen and examined, chart reviewed. No symptoms overnight however severe chest pain with Lexiscan infusion. Telemetry reviewed: Normal sinus rhythm along with atrial pacing, no arrhythmias. Review of Systems Review of Systems: All systems reviewed & are unremarkable except as noted in HPI & below Physical Exam Physical Exam: General: Awake, alert and oriented x 3. No acute distress. HEENT: Normocephalic, atraumatic. Pupils equal, round and reactive to light and accommodation. Extraocular muscles are intact. Anicteric sclera. Moist mucous membranes. Neck: No JVD. No bruit. Cardiovascular: Regular. Positive S-4. Normal S-1 and S-2. No S-3. 3/6 holosystolic ejection murmur, 5th intercostal space, mid-clavicular line without radiation. No rubs. Pulmonary: Clear to auscultation bilaterally. No rales, rhonchi, or wheezing. Abdomen: Bowel sounds x 4, soft. No rebound, guarding or tenderness. No organomegaly. Extremities: No clubbing, cyanosis or edema. +2 pedal pulses bilaterally. Skin: Warm and dry. Results & Data ([facility]) Vital Signs (Past 12 Hours) Vital Signs Temp Pulse Resp BP Pulse Ox 12/21/20 12:25 36.8 C 62 22 129/73 96 12/21/20 08:03 36.7 C 64 18 127/86 96 12/21/20 02:59 36.8 C 64 18 139/66 93
--- NOTE | 2020-12-21 14:56 | Myocardial Perfusion Study ---
Date of Service December 21, 2020 Myocardial Perfusion Study [facility] Myocardial Perfusion Study Report Procedure: 1. Myocardial perfusion study performed in multiple views/images 2. Lexiscan pharmacologic stress ECG Indications: 1. 80 yo F presents with chest pain suspicious for unstable angina. Ordering physician: Memo Procedural details: For the stress portion of the study, Lexiscan 0.4 mg was intravenously administered followed by a saline flush. This was followed by [30.1 ] mCi of technetium 99m Cardiolite, injected at [ 1120] on [12/21/20 ]. 30 minutes following the injection, imaging of the heart was performed in multiple projections. For the rest portion of the study, [ 10.8] mCi technetium 99m Cardiolite was injected intravenously at 0930 ] on [12/21/20 ]. 1 hour following the injection, imaging of the heart was performed in the same projections. Lexiscan stress ECG: Resting ECG demonstrated: No ischemic changes Maximum heart rate: 91 bpm Maximal, age-predicted heart rate: 64% Resting blood pressure: 144/61 mmHg Maximum blood pressure: 147/[address] changes: None Arrhythmia: None Symptoms: Severe chest pain was reproduced with injection of Lexiscan. Patient right the pain as 9 out of 10 and states it was much more severe than her presenting chest discomfort. Findings: Rotating raw imaging demonstrated no significant lung uptake. There is no significant motion artifact. Heart size appeared normal. Myocardial perfusion demonstrated small defect of the apical anterolateral wall. Ejection fraction: Greater than 70% % Wall motion: Mild hypokinesis of the apical anterolateral wall No significant transient ischemic dilation. Impression: 1. Equivocal Lexiscan nuclear stress test. Only small ischemic defect is present on imaging, however, given the reproduction of the patient's anginal equivalent with Lexiscan nuclear stress test would be concern for balanced ischemia.
[2020-12-21] MEDS ORDERED: niCARdipine HCL INJ 2.5 MG/ML 10 ML AMP ONE (15:26)
[2020-12-21] MEDS ORDERED: MIDAZOLAM HCL 1 MG/ML 2ML VIAL ONE ×2 (15:26→16:22)
[2020-12-21] MEDS ORDERED: NITROGLYCERIN/D5W 100MCG/ML 20ML SYR ONE (15:27)
[2020-12-21] MEDS ORDERED: fentaNYL citrate 100 MCG/2 ML VIAL ONE (15:27)
[2020-12-21] MEDS: HEPARIN (PORCINE) 1000 UNIT/ML 10 ML (CATH LAB USE ONLY) ONE ×2 (16:39→16:44)
--- NOTE | 2020-12-21 17:05 | Communication Note ---
Date of Service: December 21, 2020 Cardiac catheterization reveals no significant obstructive disease. Okay to discharge the patient home after post cath protocol completed No medication changes recommended, would continue outpatient regimen. Follow-up with cardiology as scheduled. Follow-up with PCP within 1 week to further evaluate chest discomfort
--- NOTE | 2020-12-21 17:07 | Post Anesthesia Assessment ---
Date of Service December 21, 2020 Post Sedation Assessment Vital Signs Temp Pulse Resp BP Pulse Ox 12/21/20 14:44 83 18 155/79 H 95 12/21/20 12:25 98.2 F 62 22 129/73 96 12/21/20 08:03 98.1 F 64 18 127/86 96 12/21/20 02:59 98.2 F 64 18 139/66 93 12/20/20 23:09 98.4 F 63 20 112/53 L 96 12/20/20 19:16 98.2 F 65 17 113/55 L 94 Recovery Score Activity: Moves 4 extremities Respiration: Deep Breath/Cough Circulation: +/-20% PreAnes Value Consciousness: Fully Awake Oxygen Saturation: O2 needed for >90% Discharge Sedation Level of Care: Fast Track Phase II Post Sedation Plan On clinical assessment, the patient appears to have tolerated the sedation without complications. Patient is recovering as anticipated. Patient will continue to be monitored by nursing and may be discharged when sedation discharge criteria are met per below protocol. Upon Completions of procedure up to 15 minutes continue every 5 minute vital signs and the P.A.R. score; then discharge to a Phase I or Fast Track to Phase II per the following guidelines: * Discharge Patient to appropriate Phase II area if PAR is 8 or greater or return to pre- procedure baseline. The post - procedure orders will be as directed. * If PAR score is less than 8 or not return to pre-procedure baseline then patient will follow Phase I monitoring till PAR is reached for Phase II. The Phase I may be done in procedure room or may call to secure a Phase I area. * If naloxone or flumazenil are used for reversal, hold in Phase I for continued monitoring from when last reversal dose was given for a minimum of 60 minutes or longer pending the nurse and/or physician discretion of patient condition before discharge to Phase II. Please call the Sedation Physician to re-evaluate and complete post-note for discharge to Phase II area. Do NOT discharge from procedure sedation or Phase 1 until post- sedation evaluation note is complete by procedure /sedation MD Sedation Discharge Instructions to be given to the patient at discharge to home.
--- NOTE | 2020-12-21 17:14 | Communication Note ---
Date of Service: December 21, 2020 per cardiology -pts diagnostic cardiac cath shows non occlusive coronaries ok to discharge home later today no medication changes Hospital follow up with family physician in a week Hailey Raza MD
--- NOTE | 2020-12-21 17:18 | Cardiac Catheterization ---
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 Supervisor Cardiac Status Clinical evaluation leading to the procedure CAD Presenation: Positive Stress Test Anginal Classification: CCS IV Heart Failure: No Cardiogenic Shock within 24 Hours: No Cardiac Arrest within 24 Hours: No Imaging Studies Past 6 Months: Yes Stress Studies Past 6 Months: Yes Stress Testing w/SPECT MPI: Yes - Positive and Risk/Extent of Ischemia (Low) Diagnostic Physicians Name: Volodymyr Arredondo MD Status: Elective Closure Device Percutaneous Entry Location: Radial Closure Device: Radial Band Recommendations: Medical Therapy and/or Counseling Intraprocedure Events Significant Disection: No Perforation: No Cardiac Cath Procedure Full Procedure Date December 21, 2020 Pre-Procedure Diagnosis Pre-Procedure Diagnosis: Positive Stress Test AUC Score AUC Score: 7 Post-Procedure Diagnosis Post-Procedure Diagnosis: Mild CAD, Normal LV Systolic Function and Elevated Intracardiac Pressures Procedure(s) Performed Procedure(s) Performed: Coronary Angiography, Left Heart Cath and Ultrasound Guided Vascular Access Sawmill Worker Volodymyr Arredondo MD Claims Collector(s) Maxi Estimated Blood Loss Estimated Blood Loss: 10 Medication(s) Medication(s): Fentanyl, Heparin, Lidocaine 1%, Nicardipine, Nitroglycerin and Versed Summary of Findings Indication: Abnormal stress test Access: 6Fr right radial artery under ultrasound guidance Catheters: Greene, pigtail Thank you Findings: LM -large caliber, no significant disease LAD -medium caliber, mildly calcified proximally with 20 to 30% proximal to mid disease, distal vessel wraps around apex without significant disease. Medium caliber D1 with 20% ostial. Circumflex -medium caliber vessel with no significant disease RCA -dominant, large caliber vessel, no significant disease LVEDP -11 LVEF 50-55%. No significant MR Arterial Closure: TR band Summary: 1. Mild nonobstructive coronary artery disease -20 to 30% proximal to mid LAD disease 2. Normal intracardiac filling pressure Recommendations: No high risk CAD to explain patient's presenting symptoms. Stress test was a false positive. Continue ASCVD risk factor modification per Dr. Hampton. Hemodynamics Rest Ao:: 120/63/87 Final Ao: 121/57/82 LV: 121/11 Recommendations Recommendations: Medical Therapy and/or Counseling Specimens Specimens: None Radiation Exposure (mGy) 875 Contrast (mls) 45 Fluids (cc crystalloids) Fluids (cc crystalloids): 125 Drains Drains: None Anesthesia Moderate [id number] Procedural Complication(s) None Disposition PCU I attest to the content of the Intraoperative Record and any orders documented therein. Any exceptions are noted below. [facility] Card Cath Procedure Codes Cardiac Catheterization Procedure 1: Cardiovascular Cath Procedures: 14131 Coronaries and LHC (+/-LV) Therapeutic Services & Ancillary Proc Procedure 1: Cardiovascular Tx and Anc Procedures: 49941 Ultrasonic Guidance Vascular Access Moderate Sedation Procedure 1: Sedation/Anesthesia: 52860 Mod Sedation by the same physician;Init15 Min Child Age 5 & Up Procedure 2: Sedation/Anesthesia: 25052 Mod Sedation by the same physician; Ea [id number] Minutes PG Care Time/CCT Total # of Minutes Spent Total Time Spent with Patient: Total time spent is greater than 50% in coordination of care (as documented) at patient's floor/unit and/or counseling patient:
[2020-12-21] MEDS ORDERED: ONDANSETRON INJ 2 MG/ML 2 ML VIAL IV PRN (17:19)
[2020-12-21] MEDS ORDERED: SODIUM CHLORIDE 0.9% 1000ML 1,000 ML IV SCH (17:30)
--- NOTE | 2020-12-21 18:29 | Discharge Summary ---
Date of Service December 21, 2020 Admission HPI Per Admitting Provider Pt is 80 y/o F with PMH Mobitz type II second-degree AV block s/p pacemaker in 2019, HTN, dyslipidemia, GERD, depression presented to ER with complaint of chest tightness this morning. Patient states 2 days ago received her second dose of COVID 19 vaccine. Complains of sore left arm from the vaccine and yesterday had chills and temp of 100.1F. She states last night started with nausea and vomiting x3 episodes. Reports had 5 episodes of diarrhea. Took 2 Pepto-Bismol during the night. This morning woke up was ambulating through her house and felt lightheaded, diaphoretic, and noted chest tightness described as "rope wrapped around chest and back squeezing". Denies any radiating pain. Denies any associated shortness of breath or palpitations. Chest tightness continued so called EMS. EMS gave patient Zofran, 4 baby aspirin, 1 spray sublingual nitro. It is reported patient was noted to have tachycardia 150 and was given adenosine for suspected SVT. Patient states when medication was administered she became short of breath and shortly after shortness of breath resolved and chest tightness resolved. Denies any dizziness while resting in bed currently. Denies any further nausea, vomiting or diarrhea this morning. Denies any symptoms from 1st COVID 19 Vaccine. She does report she has not started intermittent shortness of breath with raking over the past year without any associated chest pain or dizziness. Drinks 1-2 cups coffee daily. Denies alcohol use or OTC decongestant use. Denies hematemesis, hematochezia, QUIROZ, syncope, vision changes, neck pain, orthopnea, palpitations, cough, sore throat, choking, otalgia, rhinorrhea, abdominal pain, paresthesias, extremity weakness, extremity edema, rashes, urinary symptoms. Denies ill contacts. Principal Diagnosis Chest pain Unstable Angina Discharge Exam Physical exam: General: No acute distress, alert awake oriented x3 HEENT: PERRLA, EOMI, Heart: Regular S1-S2, no carotid bruit, no JVD, no lower extremity edema Lungs: Clear to auscultate, no wheeze or rales Abdomen: Soft nontender, no organomegaly Extremity: No cyanosis, no deformity, normal strength 5 out of 5 with upper and lower Neuro: No focal neurological deficit normal speech, normal visual field, Motor strength : normal both upper and lower extremity, sensation intact Psych: Alert awake oriented x3, normal affect Discharge Data Allergies Allergy/AdvReac Type Severity Reaction Status Date / Time amoxicillin Allergy Unknown UNKNOWN Verified 12/19/20 10:15 hylan G-F 20 Allergy Unknown UNKNOWN Verified 12/19/20 10:15 Sulfa (Sulfonamide Allergy Unknown UNKNOWN Verified 12/19/20 10:15 Antibiotics) vancomycin Allergy Unknown UNKNOWN Verified 12/19/20 10:15 sulfasalazine Allergy Unknown Verified 12/19/20 10:15 Consultations 12/19/20 13:24 ED Decision to Admit Stat 12/19/20 16:08 Consult Cardiology Routine 12/21/20 12:50 Consult Cardiac Catheterization Routine Procedures Performed Operation Date: 12/21/20 15:00 Actual Procedures p Cineradiography w/Routine Exam - Jona Arredondo MD p Cath, Left with Cors and Vent - Jona Arredondo MD Ordered Studies 12/19/20 11:53 CT angio chest PE protocol Stat 12/21/20 14:24 CL Cath Imgs for PACS use only Routine Hospital Course (1) Unstable angina: presented with angina symptoms , BUENO exertion with past several days symptoms resolved after SL nitro mild elevation of troponin noted no recurrence of chest pain since admission appreciate input from Cardiology [place] stress test done in [place] -pt developed angina symptoms s/p diagnostic cardiac cath -minimally occlusive coronaries stable to be discharge home today by cardiology on Aspirin/beta james /statin already -no change in medication needed (2) Second degree AV block, Mobitz type II: S/P pacemaker Full code Disposition : discharged to home today Total Time Total Time Spent Total Time Spent (In Minutes): 35 mins Total Time Includes: Examination of the Patient, Discharge Planning, Medication Reconciliation and Communication With Other Providers Discharge Plan Discharge Items Patient Disposition: Home - Self-Care Reason For Visit: CP Discharge Diagnosis: Chest pain Unstable Angina Activity: Per Instructions section Non-emergency contact: Primary Care Provider Call non-emergency contact if: you have any medication questions Follow-up/Referrals: Antonio Luther [Primary Care Provider] - 12/30/20 2:00 pm (Hospital follow up in a week ) Diet: Heart Healthy Addtl Attending Provider Instructions: Please take all medications as instructed on discharge list below. It is recommended that you follow-up with your primary care physician within 1-2 weeks of hospital discharge to ensure you are still doing well. Please call if you have any questions or problems. You can reach a [facility] hospitalist on duty at [facility] 24 hours a day by calling [phone] [facility] Staff [employer] Officer Provider Instructions: ACTIVITY RECOMMENDATIONS: Excess manipulation of the wrist should be avoided for the next 24-48 hours. * No lifting over 2 pounds (approximately a 1/2 gallon of milk) with the utilized arm for 24 hours. * No strenuous activity such as bowling or tennis for 3 days. * Keep the site of the procedure covered with a bandage for 24 hours. *You may shower the day after the procedure. Do not take a tub bath or submerge the puncture site in water for the next 3 days. *Do not operate any motorized equipment for 3 days. SPECIAL CARE INSTRUCTIONS: The site may be slightly bruised and sore following your procedure. Should any of the following occur, contact the Dr. who performed your procedure. 1. Redness/inflammation, swelling, chills, or fever, or colored drainage at procedure site within 3-7 days after your procedure. 2. Coldness, discoloration, ongoing numbness, severe pain, or swelling. Expect mild tingling of hand and tenderness at the puncture site for up to three days. If this persists beyond three days, or other symptoms develop, notify the Dr. who performed your procedure. BLEEDING: If the procedure site on your wrist begins to bleed, do not panic 1. Place 1 or 2 fingers firmly just slightly above the insertion site to stop the bleeding. You may be able to feel your pulse as you hold pressure. 2. Lift your finger after 5 minutes to see if the bleeding has stopped. 3. Once the bleeding has stopped, gently wipe the wrist area clean with a bandage. * If the bleeding from your wrist does not stop after 10 minutes, or if there is a large amount of bleeding or spurting, call 911 (do not drive yourself to the hospital). SKIN IRRITATION: * You may experience some redness and/or swelling in the area where radiation was administered. If any skin irritation occurs, please contact your family physician. FOLLOW UP VISIT: Keep any scheduled doctor appointments. Pending Studies at Discharge: No Stand-Alone Forms: My [facility] [employer], Smoking Cessation Medications and DC Order Prescriptions: Continued multivitamin Tablet 1 tab PO QAM RF: 0 atorvastatin 10 mg Tablet 10 mg PO HS RF: 0 pantoprazole 20 mg Tablet,Delayed Release (Dr/Ec) 20 mg PO QAM RF: 0 cholecalciferol (vitamin D3) [Vitamin D3] 25 mcg (1,000 unit) Tablet 25 mcg PO QAM RF: 0 albuterol sulfate [Proventil HFA] 90 mcg/actuation Hfa Aerosol Inhaler 1 puff INHALATION QID PRN (Reason: Shortness Of Breath) RF: 0 aspirin 81 mg Tablet,Delayed Release (Dr/Ec) 81 mg PO HS RF: 0 fluoxetine 10 mg capsule 10 mg PO DAILY RF: 0 metoprolol succinate 25 mg tablet extended release 24 hr 25 mg PO HS RF: 0 Discharge Orders: Discharge Order (Routine); Ordered 12/21/20 Ordered By: Hailey Raza Admission Data Admit Date/Time: 12/19/20 20:18 Attending Provider: Hailey Raza Admit Provider: Hailey Raza Primary Care Provider: Antonio Luther Other Providers: Hailey Raza ; Nabor Hampton Christophe R. Other Interventions: Discharge Summary Assessment (RN) Last Done: 12/21/20 21:08
[2020-12-21] MEDS: METOPROLOL SUCC 25MG EXT REL TAB PO SCH (21:28)
[2020-12-21] MEDS: ASPIRIN 81 MG ECTAB PO SCH (21:28)
[2020-12-21] MEDS: ATORVASTATIN 10 MG TAB PO SCH (21:28)
== END 2020-12-21 21:35 | disposition home or self-care (01) | DRG 281 ==
LOC: ED 09:34 → 2N 09:34 → 2E 20:19 → 2S 12-21 17:17

== ENCOUNTER 2021-12-03 21:43 | Inpatient (IN) ==
[2021-12-03] MEDS ORDERED: SODIUM CHLORIDE 0.9% 1000ML 1,000 ML IV ONE (21:53)
--- NOTE | 2021-12-03 22:02 | Emergency Department Note ---
Impression & Plan Paroxysmal supraventricular tachycardia, Substernal chest pain, Upper respiratory infection ED Provider Note Name: SHERRIE MCLEOD Age: 81 Sex: F Arrives Via: Ambulance Informant: Patient, EMS, daughter ED Provider: Jose Juan Gibbs MD Chief Complaint: Tachycardia Impression: Per impressions above Medical Decision Makin-year-old female with a history of heart block, GERD, hyperlipidemia, hypertension, depression amongst other medical issues arrives for evaluation of tachycardia, substernal chest pain and weakness. Patient notes primarily few ho urs of substernal chest pain with tachycardia and eventually called EMS. EMS found patient to be in SVT and she was given 2 rounds of adenosine before breaking to the 1 teens. On arrival patient is calming down and given some fluids with improvement heart rate into the 90s and is stable. Labs are unremarkable nonnegative troponin not above cutoff at this time. EKG is consistent with sinus tach and no ischemia. X-ray does not show any acute failure nor pneumonia at this time. Of note patient was started on prednisone and Levaquin earlier in the day and this may be contributing to her SVT. I obtained a Medtronic pacemaker interrogation which reveals these 3 episodes of SVT so far this afternoon including 2 prolonged episodes this evening. Given the paroxysmal SVT as well as the substernal chest pain associated with it I do feel that hospitalization is reasonable. Her URI is not consistent with sepsis or pneumonia at this time and she does not have Covid. I will refrain from fur ther steroids or antibiotics especially given her SVT which may be a result of them . Given none typical chest pain especially given associated with tachycardia we will hold off on anticoagulation nor full dose aspirin at this time. Julia consulted for further management. Patient and family on board with plan. Prior Medical Record and Triage/Nursing Notes reviewed by Me Additional history obtained from chart Differentials:Premature contractions, electrolyte abnormality, cardiac dysrhythmia, thyroid dysfunction, pulmonary embolism, infection, gastrointe stinal, as well as other pathologies. Vital Signs: reviewed and remarkable for tachycardia Interventions: 1 L normal saline IV Labs:Reviewed and remarkable for no significant abnormalities Imagin view chest x-ray mild congestive no evidence of overt failure or infiltrate EKG:Per My Interpretation: Indication Tachycardia: Sinus Rhythm 98 bpm, qtc 441. No Ectopy. No Ischemia. Prior to December 20, 2020 the sinus rhythm has replaced atrial pacemaker Cardiac/Tele Monitoring: Cardiac Monitoring: An Order was placed for continuous cardiac monitoring. The monitor shows a rate of 90 with a normal sinus rhythm. Consults:Dr Catrachita Alexander Hospitalist Plan: Disposition:Hospitalization. Condition: Good History of Present Illness:81-year-old female arrives for evaluation of tachycardia. Patient notes she has been ill for the last week with runny nose, congestion, cough, body ache, fatigue, fevers, chills and general malaise. She was seen via her PCP yesterday and started on prednisone, Levaquin. She was to begin taking that today after a negative home Covid test. She took 1 dose of the medicines. About 2 hours ago she started noticing her heart racing and feeling lightheaded. She started having substernal chest pressure without radiation. She called 911. EMS arrived and noticed she was in SVT. She had adenosine 6 mg and then 12 mg IV. Her heart rate went from 150 to the 1 teens. Patient notes she is feeling much fatigued at the moment though. She denies any current chest pain or other symptoms. She does have a pacemaker but does not have a defibrillator. She had no syncope, back pain, abdominal pain, nausea, vomiting, urinary/bowel symptoms, bleeding, bruising, rashes, leg swelling, calf pain, headache, neck pain or other symptoms. She states she feels better at the current time. She does note that nothing seemed to make better or worse. The adenosine was the only medication prior to arrival. ROS: See above HPI for pertinent positives & negatives. A total of 10 systems reviewed and were otherwise negative. Past Medical History:See Below Past Surgical History:See Below Family History:See Below Social History:See Below Home Medications:See Below Allergies:See Below Vitals:Blood Pressure: 134/81, Pulse 115, RR 18, T 37.2C, O2 96% on RA Physical Exam: GENERAL: Patient is tired appearing and in minimal distress. EYES: No scleral icterus, unremarkable pupils. ENT: Mucous membranes moist, no nasal congestion. NECK: No masses appreciated, nomeningismus, trachea is midline. RESPIRATORY: Mild junky cough, mild dyspnea. Clear to auscultation and equal bilaterally. No wheeze, no rhonchi. CARDIOVASCULAR: Tachycardia.No murmurs, rubs, gallops appreciated. GASTROINTESTINAL: Abdomen soft, non-tender, no peritonitis.Bowel sounds posit angelito.No masses appreciated. BACK: No midline tenderness, no CVA tenderness EXTREMITIES: Normal motion all extremities, no cyanosis, no edema. NEUROLOGIC: Alert and oriented, no acute motor or sensory deficits, no focal weakness, cranial nerves grossly intact. SKIN: No rash, no jaundice, no diaphoresis. PSYCH: Appropriate GCS: 15 ED Course: Times/Reassessments: Improved with IV fluids. She is comfortable and lying in bed. She is agreeable to hospitalization. No further SVT episodes under ER care. Jose Juan Gibbs MD Past Med/Surg History Medical History Bilateral carpal tunnel syndrome Chronic obstructive pulmonary disease Depression GERD (gastroesophageal reflux disease) Hiatal hernia History of diverticulitis History of implanted metallic device HLD (hyperlipidemia) Hypertension Left hip pain Pacemaker Second degree AV block, Mobitz type II Surgical History History of breast biopsy History of colonoscopy History of elbow surgery History of esophagogastroduodenoscopy (EGD) History of hysterectomy History of surgery on wrist History of tooth extraction History of total knee replacement Hx of cardiac cath Family History Mother Diabetes Stroke Sister Breast cancer Lung cancer Social History Smoking Status: Never smoker Second Hand Exposure: No; Hx Alcohol Use: No Hx Substance Use: No Preferred Language: Faroese Communication Ability: Effective Crm Solution Architect Required: No Beliefs That Will Affect Care: None marital status: / Current Living Situation: Alone and Family Feels Safe at Home: Yes Assistive Devices: Glasses Allergies Allergies Allergy/AdvReac Type Severity Reaction Status Date / Time amoxicillin Allergy Intermediate ITCHY HIVES Verified 12/03/21 22:40 Sulfa (Sulfonamide Allergy Intermediate ITCHY HIVES Verified 12/03/21 22:40 Antibiotics) sulfasalazine Allergy Intermediate ITCHY HIVES Verified 12/03/21 22:40 vancomycin Allergy Intermediate UNKNOWN Verified 12/03/21 22:40 hylan G-F 20 Allergy Unknown UNKNOWN Verified 12/03/21 22:40 Home Meds Home Medications Medication Instructions Recorded Confirmed albuterol sulfate 90 mcg/actuation 1 puff INHALATION QID PRN 03/16/20 12/03/21 aerosol inhaler (Proventil HFA) atorvastatin 10 mg tablet 10 mg PO HS 03/16/20 12/03/21 cholecalciferol (vitamin D3) 25 25 mcg PO QAM 03/16/20 12/03/21 mcg (1,000 unit) tablet (Vitamin D3) multivitamin 1 tab PO QAM 03/16/20 12/03/21 pantoprazole 20 mg tablet,delayed 20 mg PO QAM 03/16/20 12/03/21 release metoprolol succinate 25 mg 25 mg PO HS 12/19/20 12/03/21 tablet,extended release 24 hr celecoxib 200 mg capsule (Celebrex) 200 mg PO DAILY PRN 08/10/21 12/03/21 levofloxacin 500 mg tablet 500 mg PO DAILY 12/03/21 12/03/21 metronidazole 500 mg tablet 500 mg PO BID 12/03/21 12/03/21 prednisone 10 mg tablet 0 mg PO DAILY 12/03/21 12/03/21 Results & Data (ED) Vital Signs Vital Signs - 24 hr 12/03/21 21:50 12/03/21 22:00 12/03/21 22:12 Temperature 37.2 C Temperature Source Oral Pulse Rate 99 H 96 H Pulse Rate from SpO2 Sensor 96 H Respiratory Rate 18 13 Respiratory Effort / Characteristics Non-Labored Respiratory Depth Normal Normal Blood Pressure 134/81 136/77 Blood Pressure Mean 98 96 Pulse Oximetry 96 93 Oxygen Delivery Method Room Air Room Air Sepsis Recent Fever Within 48 Hours No Sepsis New/Unexplained Change in Mental Status N/A Sepsis Action Taken by Nursing No Action Required 12/03/21 22:31 12/03/21 22:33 12/03/21 23:16 Temperature Temperature Source Pulse Rate 87 92 H 90 Pulse Rate from SpO2 Sensor 89 92 H 89 Respiratory Rate 7 L 20 18 Respiratory Effort / Characteristics Respiratory Depth Blood Pressure 140/64 144/74 H Blood Pressure Mean 89 97 Pulse Oximetry 95 97 95 Oxygen Delivery Method Room Air Sepsis Recent Fever Within 48 Hours Sepsis New/Unexplained Change in Mental Status Sepsis Action Taken by Nursing Laboratory Data Result diagrams: 12/03/21 21:59 12/03/21 21:59 Lab Results 12/03/21 12/03/21 12/03/21 Range/Units 21:59 21:59 21:59 WBC 7.57 (4.8-10.8) K/uL RBC 4.16 L (4.2-5.4) M/uL Hgb 13.5 (12.0-16.0) g/dL Hct 39.4 (37-47) % MCV 94.7 (80-100) fL MCH 32.5 (25-34) pg MCHC 34.3 (32-36) g/dL RDW Std Deviation 43.3 (36.4-46.3) fL RDW Coeff of Micky 12.6 (11.5-14.5) % Plt Count 187 (130-400) K/uL MPV 9.9 (7.4-10.4) fL Immature Gran % (Auto) 0.0 % Neut % (Auto) 92.1 % Lymph % (Auto) 6.2 % [place] % (Auto) 1.3 % Eos % (Auto) 0.1 % Baso % (Auto) 0.3 % Neut # (Auto) 6.97 H (1.4-6.5) K/uL Lymph # (Auto) 0.47 L (1.2-3.4) K/uL [place] # (Auto) 0.10 L (0.11-0.59) K/uL Eos # (Auto) 0.01 (0-0.5) K/uL Baso # (Auto) 0.02 (0-0.2) K/uL Immature Gran # (Auto) 0.00 (0.00-0.02) K/uL Sodium 135 L (136-145) mmol/L Potassium 4.0 (3.5-5.1) mmol/L Chloride 104 (98-107) mmol/L Carbon Dioxide 25 (21-32) mmol/L Anion Gap 6 (3-11) BUN 16 (6-23) mg/dl Creatinine 0.80 (0.6-1.2) mg/dl Est Cr Clr Drug Dosing 51.6 ml/min Est GFR ( Amer) 80.7 ml/min Est GFR (Non-Af Amer) 69.6 ml/min BUN/Creatinine Ratio 20.0 (10-20) Glucose 166 H (70-99(Fasting)) mg/dl Calcium 9.2 (8.5-10.1) mg/dl Magnesium 2.1 (1.7-2.4) mg/dl Troponin I 0.03 (0-0.04) ng/ml SARS-CoV-2, RNA, NAAT NEGATIVE (NEGATIVE) Administered Medications Discontinued Medications Sodium Chloride (Nss 1000ml) 1,000 mls @ 999 mls/hr IV .Q1H1M ONE Stop: 12/03/21 22:53 Last Infusion: 12/03/21 23:00 Dose: 0 mls/hr Documented by: [id number] Admin: 12/03/21 21:59 Dose: 999 mls/hr Documented by: [id number] Discharge Plan Visit Data Chief Complaint: Tachycardia Stated Complaint: Tachycardia ED Provider: Jose Juan Gibbs Discharge Problem: Paroxysmal supraventricular tachycardia, Substernal chest pain, Upper respiratory infection Forms Stand Alone Forms: [facility] Prescriptions Prescriptions: No Action celecoxib [Celebrex] 200 mg capsule 200 mg PO DAILY PRN (Reason: Pain) RF: 0 multivitamin Tablet 1 tab PO QAM RF: 0 atorvastatin 10 mg Tablet 10 mg PO HS RF: 0 pantoprazole 20 mg Tablet,Delayed Release (Dr/Ec) 20 mg PO QAM RF: 0 cholecalciferol (vitamin D3) [Vitamin D3] 25 mcg (1,000 unit) Tablet 25 mcg PO QAM RF: 0 albuterol sulfate [Proventil HFA] 90 mcg/actuation Hfa Aerosol Inhaler 1 puff INHALATION QID PRN (Reason: Shortness Of Breath) RF: 0 metoprolol succinate 25 mg tablet extended release 24 hr 25 mg PO HS RF: 0 prednisone 10 mg tablet 0 mg PO DAILY RF: 0 metronidazole 500 mg tablet 500 mg PO BID RF: 0 levofloxacin 500 mg tablet 500 mg PO DAILY RF: 0 Referrals Referrals: Antonio Luther [Primary Care Provider] - Discharge Problem: Upper respiratory infection Qualifiers: URI type: unspecified URI Qualified Code(s): J06.9 - Acute upper respiratory infection, unspecified
[2021-12-03 22:13] LABS: Basophils # (auto) 0.02 K/uL (0-0.2); Basophils % (auto) 0.3 %; Eosinophils # (auto) 0.01 K/uL (0-0.5); Eosinophils % (auto) 0.1 %; Hematocrit (blood only) 39.4 % (37-47); Hemoglobin 13.5 g/dL (12.0-16.0); Lymphocytes # (auto) 0.47 K/uL (1.2-3.4); Lymphocytes % (auto) 6.2 %; Mean Corpuscular Hemoglobin 32.5 pg (25-34); Mean Corpuscular Hgb Conc 34.3 g/dL (32-36); Mean Corpuscular Volume 94.7 fL (80-100); Mean Platelet Volume 9.9 fL (7.4-10.4); Monocytes % (auto) 1.3 %; Neutrophils # (auto) 6.97 K/uL (1.4-6.5); Neutrophils % (auto) 92.1 %; Platelet Count 187 K/uL (130-400); RDW Coefficient of Variation 12.6 % (11.5-14.5); RDW Standard Deviation 43.3 fL (36.4-46.3); Red Blood Count 4.16 M/uL (4.2-5.4); White Blood Count 7.57 K/uL (4.8-10.8)
[2021-12-03 22:34] LABS: Calcium 9.2 mg/dl (8.5-10.1); Creatinine Clr Calc Pharmacy 51.6 ml/min; Est GFR (African American) 80.7 ml/min; Est GFR (Non-African American) 69.6 ml/min; Magnesium 2.1 mg/dl (1.7-2.4)
[2021-12-03 22:35] LABS: Troponin I 0.03 ng/ml (0-0.04)
[2021-12-03] MEDS ORDERED: METOPROLOL TARTRATE 25 MG TAB PO STA (23:55)
[2021-12-04] MEDS ORDERED: SODIUM CHLORIDE 0.9% 1000ML 1,000 ML IV SCH (00:51)
[2021-12-04] MEDS ORDERED: ALBUTEROL HFA 8 GM INHALER INH PRN (00:51)
[2021-12-04] MEDS ORDERED: ACETAMINOPHEN 325 MG TAB PO PRN (00:51)
[2021-12-04] MEDS ORDERED: POLYETHYLENE (MIRALAX) 17 GM PACK PO PRN (00:51)
[2021-12-04] MEDS ORDERED: ONDANSETRON INJ 2 MG/ML 2 ML VIAL IV PRN (00:51)
[2021-12-04] MEDS ORDERED: NITROGLYCERIN SL 0.4 MG/TAB TAB SL PRN (00:51)
[2021-12-04] MEDS ORDERED: METOPROLOL TARTRATE 1 MG/ML VIAL IV PRN (00:51)
[2021-12-04 00:59] LABS: Influenza A virus by PCR Negative (Neg); Influenza B virus by PCR Negative (Neg); RSV by PCR Negative (Neg); SARS CoV2 RNA(COVID-19) InHosp NEGATIVE (Negative)
--- NOTE | 2021-12-04 01:32 | History and Physical Report ---
DATE OF ADMISSION: 12/03/2021. CHIEF COMPLAINT: SVT. HISTORY OF PRESENT ILLNESS: This is an 81-year-old female with past medical history significant for hyperlipidemia, allergic rhinitis, hypertension, history of near syncope, history of second-degree AV block, status post pacemaker, history of diverticulitis of colon, GERD, osteoarthrosis, diffuse cystic mastopathy, who lives at home alone, comes because of SVT. The patient says he is having cold symptoms for the last 1 week.. Initially, she had a very severe sore throat but that is better, has runny nose and cough. Denies any fever or chills. Says it is not getting better. She called the family doctor and she was prescribed prednisone and Levaquin today. She did a home COVID test and it was negative and in the afternoon, she took the prednisone and Levaquin and she went to sleep and when she woke up, she was feeling palpitations and f chest discomfort, not feeling well and weak, fatigued. She checked in the monitor, her heart rate was 166. She called up her [id number] and she checked again heart rate and was 170, when they decided to come to the ER. En route in the ambulance, she was given 2 doses of adenosine, which broke her heart rate into 110s. In the ER, after fluids, she is currently resting comfortably and hemodynamically stable and heart rate is in regular rhythm at a rate of 80s and 90s. Currently, chest pain got resolved. No shortness of breath, no headache, no blurred visions. Appetite is not that great since the last 1 week. No difficulty swallowing. No nausea, no vomiting. Today, she had one episode of diarrhea that resolved. At that time, she had abdominal discomfort that is resolved now. She is peeing a lot because she is drinking a lot of fluids since last 1 week and she is not eating much. No burning micturition. No hematuria. No blood in stools or black stools. ALLERGIES: AMOXICILLIN, SULFA ANTIBIOTICS, SULFASALAZINE, VANCOMYCIN. HYLAN G- F 20. PAST MEDICAL HISTORY: As mentioned above. PAST SURGICAL HISTORY: Right knee arthroplasty, biopsy of the breast, breast lesion excision, combined right and left heart catheterization, back lesion excision of seborrheic keratosis, left foot lesion excision, rebuild of eardrum structures, total abdominal hysterectomy with removal of tubes, status post pacemaker. MEDICATIONS: The patient is on albuterol 1 puff inhalation q.i.d. p.r.n., atorvastatin 10 mg p.o. at bedtime, celecoxib 200 mg p.o. daily p.r.n., vitamin D 25 mcg p.o. daily, Levaquin 500 mg p.o. daily, metoprolol succinate 25 mg p.o. at bedtime, metolazone 5 mg p.o. b.i.d., multivitamin 1 tablet p.o. a.m., Protonix 20 mg p.r.n., prednisone as directed. FAMILY HISTORY: Significant for sister has breast cancer and lung cancer; father has glaucoma; mother has CAD and CVA. SOCIAL HISTORY: Currently . No smoking. No alcohol use. No drug use. REVIEW OF SYSTEMS: As per HPI. Rest of the review of systems is negative. PHYSICAL EXAMINATION: GENERAL: The patient is of moderate build, not in acute distress. VITAL SIGNS: Temperature 37.2, pulse 90, respiratory rate 18, blood pressure 144/74, oxygen 95% on room air. HEENT: Pupils equal, round and reactive to light. Oral mucosa moist. NECK: No JVD, no neck masses. CARDIOVASCULAR: S1 and S2 heard. Regular rate and rhythm. No murmur, no gallop. RESPIRATORY SYSTEM: Normal AP diameter. No accessory muscle use. No wheezing, no crackles. ABDOMEN: Soft, bowel sounds present, nontender, no distention. CENTRAL NERVOUS SYSTEM: Cranial nerves II through XII are grossly intact, nonfocal. EXTREMITIES: bilateral lower extremity edema present, no erythema seen. LABORATORY DATA: WBC 7.5, hemoglobin 13.5, hematocrit 39.4, platelets 187. Sodium 135, potassium 4, chloride 104, bicarbonate 25, BUN 16, creatinine 0.8, serum glucose 166, calcium 9.2, magnesium 2.1. Troponin I of 0.03. SARS-CoV-2 rapid test negative. IMAGING DATA: Chest x-ray, no obvious infiltrates seen. EKG: Normal sinus rhythm at a rate of 98. Q-waves in inferior leads. ASSESSMENT AND PLAN: This is an 81-year-old female who presents with supraventricular tachycardia. 1. Supraventricular tachycardia Since taking Levaquin and prednisone for upper respiratory infection today. Will hold Levaquin and prednisone. Cxr ok. Covid and flu negative. After 2 doses of adenosine, she has converted. Currently, resting comfortably and hemodynamically stable. Continue her home metoprolol succinate at bedtime. Placed on IV Lopressor p.r.n., follow serial enzymes, echo, currently keep her n.p.o. Will consult Cardiology in the a.m. Monitor in the tele floor. Pacemaker was interrogated in the ER and seemed to have three episodes of supraventricular tachycardia today with two prolonged episodes. Await cardiology input. 2. Chest discomfort during the supraventricular tachycardia, currently asymptomatic: Will follow the serial enzymes, echocardiogram. 3. History of second-degree AV block, Mobitz type 2, status post pacemaker. 4. History of hypertension: On metoprolol succinate. Will monitor the blood pressure. 5. History of hyperlipidemia: On statin. 6. History of gastroesophageal reflux disease: On Protonix. 7. Deep venous thrombosis prophylaxis: Placed on Lovenox. DISPOSITION: Closely monitor in the tele floor. Level 1 full code. Expect to discharge home and follow with family doctor. PT, OT prior to discharge. Job ID: [id number] MTDD
--- NOTE | 2021-12-04 06:35 | XRay Report ---
XR chest 1V portable CLINICAL HISTORY: cough, illness. COMPARISON STUDY: 12/19/2020 TECHNIQUE: 1 view of the chest FINDINGS: Single frontal view of the chest demonstrates the cardiomediastinal silhouette to be within normal li mits. A pacer The lungs are clear of alveolar opacities. There is no evidence for pleural effusion. T here is no evidence for vascular congestion. There is no acute osseous pathology. IMPRESSION: 1. No acute cardiopulmonary disease. ACT 112: Negative or not required by law. Electronically signed by: George Melendrez M.D. 12/04/2021 6:34 AM
[2021-12-04] MEDS: CHOLECALCIFEROL 1,000 UNITS 25 MCG TAB PO SCH (08:15)
[2021-12-04] MEDS: MULTIVITAMIN TAB PO SCH (08:16)
[2021-12-04] MEDS: ENOXAPARIN INJ 40 MG/0.4 ML SYR SQ SCH (08:16)
[2021-12-04] MEDS: PANTOprazole 40 MG TAB PO SCH (08:16)
--- NOTE | 2021-12-04 11:12 | Cardiology Consultation ---
Date of Consultation December 04, 2021 Assessment & Plan (1) SVT (supraventricular tachycardia): (2) Substernal chest pain: (3) Hypertension: (4) HLD (hyperlipidemia): (5) GERD (gastroesophageal reflux disease): (6) Second degree AV block, Mobitz type II: (7) Chest pain: (8) CAD (coronary artery disease): The inciting event of her SVT was likely due to the patient taking prednisone and Levaquin. Obviously those have been discontinued. 2D echocardiogram shows no significant structural abnormalities and no significant laboratory abnormalities either. I believe the most prudent course of action at this point would be to increase her beta-james and monitor on telemetry 1 more night to allow the medications to be fully excreted. History of Present Illness Reason for Consultation: SVT Requesting Physician: Dr. Domínguez Attending Physician: Ilan Mckee MD History of Present Illness It was my pleasure to see Mrs. Cifuentes in cardiac consultation today December 04, 2021. She is a very pleasant 81-year-old woman who routinely follows with Dr. Hammer of our cardiology practice but has been a refugee from cardiac care for 2 years now. She presented to [facility] emergency department on 12/03/2021 via EMS after experiencing chest discomfort, lightheadedness and palpitations. She states in the days leading up to the episode she is not been feeling well dealing with sinus congestion. She called into her PCPs office who sent her in a prescription for prednisone and Levaquin. She took the first doses of both yesterday evening and then approximately 1 hour later she developed diaphoresis, palpitations and chest burning sensation. At this time she also felt her heart start to race. She became concerned and summoned EMS. Upon arrival she was found to be in SVT. Vagal maneuvers attempted but only transiently beneficial. Given adenosine x2 with successful cardioversion to normal sinus rhythm. No further events since admission. Currently resting comfortably. Allergies Allergy/AdvReac Type Severity Reaction Status Date / Time amoxicillin Allergy Intermediate ITCHY HIVES Verified 12/03/21 22:40 Sulfa (Sulfonamide Allergy Intermediate ITCHY HIVES Verified 12/03/21 22:40 Antibiotics) sulfasalazine Allergy Intermediate ITCHY HIVES Verified 12/03/21 22:40 vancomycin Allergy Intermediate UNKNOWN Verified 12/03/21 22:40 hylan G-F 20 Allergy Unknown UNKNOWN Verified 12/03/21 22:40 Home Medications Medication Instructions Recorded Confirmed Type albuterol sulfate 90 mcg/actuation 1 puff INHALATION QID PRN 03/16/20 12/03/21 History aerosol inhaler (Proventil HFA) atorvastatin 10 mg tablet 10 mg PO HS 03/16/20 12/03/21 History cholecalciferol (vitamin D3) 25 25 mcg PO QAM 03/16/20 12/03/21 History mcg (1,000 unit) tablet (Vitamin D3) multivitamin 1 tab PO QAM 03/16/20 12/03/21 History pantoprazole 20 mg tablet,delayed 20 mg PO QAM 03/16/20 12/03/21 History release metoprolol succinate 25 mg 25 mg PO HS 12/19/20 12/03/21 History tablet,extended release 24 hr celecoxib 200 mg capsule (Celebrex) 200 mg PO DAILY PRN 08/10/21 12/03/21 History levofloxacin 500 mg tablet 500 mg PO DAILY 12/03/21 12/03/21 History metronidazole 500 mg tablet 500 mg PO BID 12/03/21 12/03/21 History prednisone 10 mg tablet 0 mg PO DAILY 12/03/21 12/03/21 History Patient History Medical History Bilateral carpal tunnel syndrome Chronic obstructive pulmonary disease doesn't use res. inh. only flare ups during summer Depression GERD (gastroesophageal reflux disease) Hiatal hernia with surgical repair History of diverticulitis History of implanted metallic device L ear metal piston HLD (hyperlipidemia) Hypertension Left hip pain Pacemaker Medtronic> last checked over phone January 2020. first placed Nov 2018. Second degree AV block, Mobitz type II follows Dr. Lizbeth Adam > pacer placed due to this Surgical History History of breast biopsy left > benign History of colonoscopy History of elbow surgery left History of esophagogastroduodenoscopy (EGD) History of hysterectomy History of surgery on wrist bilat for breaks from fall History of tooth extraction History of total knee replacement bilat Hx of cardiac cath 20 yrs ago> no issues> no stents Family History Mother Diabetes Stroke Sister Breast cancer Lung cancer Social History Smoking Status: Never smoker Second Hand Exposure: No; Hx Alcohol Use: Yes Alcohol type: wine Hx Substance Use: No Preferred Language: Cook Islander Communication Ability: Effective Underwriting Technician Required: No Beliefs That Will Affect Care: None marital status: / Current Living Situation: Alone Feels Safe at Home: Yes Assistive Devices: None Results & Data ([facility]) Vital Signs (Past 12 Hours) Vital Signs Temp Pulse Pulse Resp BP BP Pulse Ox 12/04/21 07:29 36.7 C 61 61 H 119/74 95 12/04/21 07:00 67 12/04/21 03:58 36.9 C 63 17 123/75 95 12/04/21 02:28 66 12/04/21 00:52 36.7 C 12 96 12/04/21 00:00 79 14 105/66 95 12/03/21 23:16 90 18 144/74 H 95 Diagnostic Findings Last device check 09/22/21: Monitored episodes: 1 VT nonsustained episodes of which the longest is 4 seconds with a ventricular rate of 158 bpm Monitored episodes:3 Fast A & VTepisodes of which the longest is 6 minutes and 27seconds with a rate of 172bpm Monitored episodes:3 SVT-STepisodes of which the longest is 46seconds with a rate of 158bpm (1) Chest pain Chest pain type: unspecified Qualified Code(s): R07.9 - Chest pain, unspecified
[2021-12-04] MEDS: METOPROLOL SUCC 25MG EXT REL TAB PO SCH ×2 (12:26→19:46)
--- NOTE | 2021-12-04 15:09 | Hospitalist Progress Note ---
Date of Service December 04, 2021 Assessment & Plan (1) SVT (supraventricular tachycardia): Plan: Admitted with a.m. palpitation with a heart rate of 160 Likely contributed by use of prednisone plus Levaquin as an outpatient Received 2 doses of adenosine in the ambulance She remained in sinus rhythm as of this morning Appreciate cardiology input and recommendation Beta-james doses have been increased (2) Paroxysmal supraventricular tachycardia: Plan: History of paroxysmal supraventricular tachycardia (3) Upper respiratory infection: Plan: Has been complaining of runny nose sneezing Likely has sinus infection Cannot take any penicillin Will try doxycycline (4) Hypertension: Plan: Blood pressure is controlled (5) HLD (hyperlipidemia): Plan: Continue statin DVT prophylaxis Subcu Lovenox CODE STATUS Full Likely discharge tomorrow Admission and Anticipated Discharge Date Admission Date: December 03, 2021 Subjective 12/04/2021 The patient was seen and examined in telemetry unit She has been complaining of runny nose with sneezing for the last 1 week or so She was given prednisone and Levaquin by her primary care provider She noted to have increasing palpitation with heart rate of 160 on the day of admission Denies any chest pain and/or palpitation today Review of Systems Review of Systems: All systems reviewed and are unremarkable except as noted below Respiratory: No shortness of breath Cardiovascular: Additional Comments: No palpitation and no chest pain Physical Exam Physical Exam: Lying in bed comfortably Constitutional: well developed, well nourished, + ill appearing and + obese Eyes: PERRL, conjunctivae normal, anicteric sclerae ENMT: external ear and nose normal, oropharynx normal Neck: trachea midline, no thyromegaly Respiratory: no respiratory distress Auscultation: lungs clear to auscultation bilaterally Cardiovascular: Rate/Rhythm: regular rate and regular rhythm; not tachycardic Heart Sounds: normal S1 and normal S2; no murmur Extremities: no edema Gastrointestinal (Abdomen): Inspection/Auscultation: normal bowel sounds; abdomen not distended Percussion/Palpation: abdomen soft; abdomen nontender Musculoskeletal: No acute arthritis in any joint Neurologic: Alert, awake and oriented x3. No focal sensory or no motor deficit appreciated Results & Data Results & Data ([facility]) Vital Signs (Past 12 Hours) Vital Signs Temp Pulse Pulse Resp BP Pulse Ox 12/04/21 11:11 36.6 C 65 19 103/69 96 12/04/21 07:29 36.7 C 61 61 H 119/74 95 12/04/21 07:00 67 12/04/21 03:58 36.9 C 63 17 123/75 95 Laboratory Results Short CBC 12/03/21 Range/Units 21:59 WBC 7.57 (4.8-10.8) K/uL Hgb 13.5 (12.0-16.0) g/dL Hct 39.4 (37-47) % Plt Count 187 (130-400) K/uL BMP 12/03/21 21:59 Sodium 135 L Potassium 4.0 Chloride 104 Carbon Dioxide 25 BUN 16 Creatinine 0.80 Glucose 166 H Calcium 9.2 Cardiac Enzymes 12/03/21 12/04/21 12/04/21 Range/Units 21:59 06:31 09:25 Troponin I 0.03 0.16 H* 0.15 H* (0-0.04) ng/ml Medications Administered Current Inpatient Medications Acetaminophen (Acetaminophen 325 Mg Tab) 650 mg PO Q4H PRN PRN Reason: Pain or Fever Stop: 01/03/22 00:50 Albuterol (Albuterol Hfa 8 Gm Inhaler) 1 puffs INH QID PRN PRN Reason: Shortness Of Breath Stop: 01/03/22 00:50 Atorvastatin Calcium (Atorvastatin 10 Mg Tab) 10 mg PO HS [facility] Stop: 01/03/22 20:59 Doxycycline Hyclate (Doxycycline Hyclate 100 Mg Cap) 100 mg PO BID [facility]; Protocol Stop: 12/11/21 20:59 Doxycycline Hyclate (Doxycycline Hyclate 100 Mg Cap) 100 mg PO ONE ONE; Protocol Stop: 12/04/21 15:16 Enoxaparin Sodium (Enoxaparin Inj 40 Mg/0.4 Ml Syr) 40 mg SQ Q24H YENNY Stop: 01/03/22 08:59 Last Admin: 12/04/21 08:16 Dose: 40 mg Documented by: Metoprolol Succinate (Metoprolol Succ 25mg Ext Rel Tab) 25 mg PO BID [facility] Stop: 01/03/22 11:29 Last Admin: 12/04/21 12:26 Dose: 25 mg Documented by: Metoprolol Tartrate (Metoprolol Tartrate 1 Mg/Ml Vial) 5 mg IV Q6 PRN; Protocol PRN Reason: Tachycardia Stop: 01/03/22 00:50 [facility]ivitamins ([facility]itamin Tab) [facility] Stop: 01/03/22 08:59 Last Admin: 12/04/21 08:16 Dose: 1 tab Documented by: Nitroglycerin (Nitroglycerin Sl 0.4 Mg/Tab Tab) 0.4 mg SL UD PRN PRN Reason: Chest Pain Stop: 01/03/22 00:50 Ondansetron HCl (Ondansetron Inj 2 Mg/Ml 2 Ml Vial) 4 mg IV Q6H PRN PRN Reason: Nausea Stop: 01/03/22 00:50 Pantoprazole Sodium (Pantoprazole 40 Mg Tab) [facility] Stop: 01/03/22 08:59 Last Admin: 12/04/21 08:16 Dose: 40 mg Documented by: Polyethylene Glycol (Polyethylene (Miralax) 17 Gm Pack) 17 gm PO DAILY PRN PRN Reason: Constipation Stop: 01/03/22 00:50 Vitamin D (Cholecalciferol 1,000 Units 25 Mcg Tab) 1,000 units PO [facility] Stop: 01/03/22 08:59 Last Admin: 12/04/21 08:15 Dose: 1,000 units Documented by: (1) Upper respiratory infection URI type: unspecified URI Qualified Code(s): J06.9 - Acute upper respiratory infection, unspecified
[2021-12-04] MEDS ORDERED: DOXYCYCLINE HYCLATE 100 MG CAP PO ONE (15:15)
[2021-12-04] MEDS ORDERED: METOPROLOL SUCC 25MG EXT REL TAB PO SCH (21:00)
[2021-12-04] MEDS ORDERED: ATORVASTATIN 10 MG TAB PO SCH (21:00)
[2021-12-04] MEDS ORDERED: DOXYCYCLINE HYCLATE 100 MG CAP PO SCH (21:00)
[2021-12-05 05:29] LABS: BUN Creatinine Ratio 22.1 (10-20); Calcium 9.1 mg/dl (8.5-10.1); Creatinine Clr Calc Pharmacy 47.5 ml/min; Est GFR (African American) 73.9 ml/min; Est GFR (Non-African American) 63.8 ml/min; Potassium 4.3 mmol/L (3.5-5.1)
--- NOTE | 2021-12-05 06:19 | Electrocardiogram Report ---
Test Reason : Blood Pressure : / mmHG Vent. Rate : 098 BPM Atrial Rate : 098 BPM P-R Int : 176 ms QRS Dur : 074 ms QT Int : 346 ms P-R-T Axes : 044 002 043 degrees QTc Int : 441 ms Poor data quality, interpretation may be adversely affected Normal sinus rhythm Possible Inferior infarct , age undetermined Abnormal ECG When compared with ECG of 20-DEC-2020 04:10, Sinus rhythm has replaced Electronic atrial pacemaker Vent. rate has increased BY 38 BPM Confirmed by Esau Miguel ([id number]) on 12/05/2021 6:19:16 AM Referred By: REFERRED SELF Confirmed By:Esau Miguel
--- NOTE | 2021-12-05 06:22 | Electrocardiogram Report ---
Test Reason : Blood Pressure : / mmHG Vent. Rate : 066 BPM Atrial Rate : 066 BPM P-R Int : 180 ms QRS Dur : 082 ms QT Int : 416 ms P-R-T Axes : 051 022 059 degrees QTc Int : 436 ms Normal sinus rhythm Normal ECG When compared with ECG of 03-DEC-2021 21:50, Vent. rate has decreased BY 32 BPM Borderline criteria for Inferior infarct are no longer Present Confirmed by Esau Miguel ([id number]) on 12/05/2021 6:22:39 AM Referred By: REFERRED SELF Confirmed By:Esau Miguel
[2021-12-05] MEDS: CHOLECALCIFEROL 1,000 UNITS 25 MCG TAB PO SCH (08:13)
[2021-12-05] MEDS: METOPROLOL SUCC 25MG EXT REL TAB PO SCH (08:13)
[2021-12-05] MEDS: MULTIVITAMIN TAB PO SCH (08:14)
[2021-12-05] MEDS: ENOXAPARIN INJ 40 MG/0.4 ML SYR SQ SCH (08:14)
[2021-12-05] MEDS: PANTOprazole 40 MG TAB PO SCH (08:14)
--- NOTE | 2021-12-05 13:36 | Hospitalist Progress Note ---
Date of Service December 05, 2021 Assessment & Plan (1) SVT (supraventricular tachycardia): Plan: Admitted with a.m. palpitation with a heart rate of 160 Likely contributed by use of prednisone plus Levaquin as an outpatient Received 2 doses of adenosine in the ambulance She remained in sinus rhythm as of this morning Appreciate cardiology input and recommendation Beta-james doses have been increased No more arrhythmias and no more SVT Has had episode of flushing without any significant hemodynamic instability The patient thinks due to dehydration and following drinking more fluid the condition resolved completely Will be discharged home this afternoon (2) Paroxysmal supraventricular tachycardia: Plan: History of paroxysmal supraventricular tachycardia (3) Upper respiratory infection: Plan: Has been complaining of runny nose sneezing Likely has sinus infection Cannot take any penicillin Will try doxycycline-congestive symptoms are better and sinus pain and pressure improved (4) Hypertension: Plan: Blood pressure is controlled (5) HLD (hyperlipidemia): Plan: Continue statin DVT prophylaxis Subcu Lovenox CODE STATUS Full Likely discharge this afternoon Admission and Anticipated Discharge Date Admission Date: December 03, 2021 Subjective 12/04/2021 The patient was seen and examined in telemetry unit She has been complaining of runny nose with sneezing for the last 1 week or so She was given prednisone and Levaquin by her primary care provider She noted to have increasing palpitation with heart rate of 160 on the day of admission Denies any chest pain and/or palpitation today 02/04/2022 The patient was seen and examined in telemetry unit She has had an episode of flushing without any significant arrhythmia and/or shortness of breath She has been feeling much better now Review of Systems Review of Systems: All systems reviewed and are unremarkable except as noted below Respiratory: No shortness of breath Cardiovascular: Additional Comments: No palpitation and no chest pain Physical Exam Physical Exam: Lying in bed comfortably Constitutional: well developed, well nourished, + ill appearing and + obese Eyes: PERRL, conjunctivae normal, anicteric sclerae ENMT: external ear and nose normal, oropharynx normal Neck: trachea midline, no thyromegaly Respiratory: no respiratory distress Auscultation: lungs clear to auscultation bilaterally Cardiovascular: Rate/Rhythm: regular rate and regular rhythm; not tachycardic Heart Sounds: normal S1 and normal S2; no murmur Extremities: no edema Gastrointestinal (Abdomen): Inspection/Auscultation: normal bowel sounds; abdomen not distended Percussion/Palpation: abdomen soft; abdomen nontender Musculoskeletal: No acute arthritis in any joint Neurologic: Alert, awake and oriented x3. No focal sensory and motor deficit appreciated Results & Data Results & Data ([facility]) Vital Signs (Past 12 Hours) Vital Signs Temp Pulse Pulse Resp BP Pulse Ox 12/05/21 08:19 36.9 C 71 22 134/82 93 12/05/21 07:42 66 12/05/21 07:39 36.4 C L 69 20 113/66 94 12/05/21 04:02 38.7 C H 72 18 128/76 98 Laboratory Results BMP 12/05/21 04:20 Sodium 138 Potassium 4.3 Chloride 106 Carbon Dioxide 26 BUN 19 Creatinine 0.86 Glucose 89 Calcium 9.1 Medications Administered Current Inpatient Medications Acetaminophen (Acetaminophen 325 Mg Tab) 650 mg PO Q4H PRN PRN Reason: Pain or Fever Stop: 01/03/22 00:50 Albuterol (Albuterol Hfa 8 Gm Inhaler) 1 puffs INH QID PRN PRN Reason: Shortness Of Breath Stop: 01/03/22 00:50 Atorvastatin Calcium (Atorvastatin 10 Mg Tab) 10 mg PO HS [facility] Stop: 01/03/22 20:59 Last Admin: 12/04/21 19:45 Dose: 10 mg Documented by: Doxycycline Hyclate (Doxycycline Hyclate 100 Mg Cap) 100 mg PO BID [facility]; Protocol Stop: 12/11/21 20:59 Last Admin: 12/05/21 08:13 Dose: 100 mg Documented by: Enoxaparin Sodium (Enoxaparin Inj 40 Mg/0.4 Ml Syr) 40 mg SQ Q24H [facility]ENNY Stop: 01/03/22 08:59 Last Admin: 12/05/21 08:14 Dose: 40 mg Documented by: Metoprolol Succinate (Metoprolol Succ 25mg Ext Rel Tab) 25 mg PO BID [facility] Stop: 01/03/22 11:29 Last Admin: 12/05/21 08:13 Dose: 25 mg Documented by: Metoprolol Tartrate (Metoprolol Tartrate 1 Mg/Ml Vial) 5 mg IV Q6 PRN; Protocol PRN Reason: Tachycardia Stop: 01/03/22 00:50 Multivitamins ([facility]ivitamin Tab) [facility] Stop: 01/03/22 08:59 Last Admin: 12/05/21 08:14 Dose: 1 tab Documented by: Nitroglycerin (Nitroglycerin Sl 0.4 Mg/Tab Tab) 0.4 mg SL UD PRN PRN Reason: Chest Pain Stop: 01/03/22 00:50 Ondansetron HCl (Ondansetron Inj 2 Mg/Ml 2 Ml Vial) 4 mg IV Q6H PRN PRN Reason: Nausea Stop: 01/03/22 00:50 Pantoprazole Sodium (Pantoprazole 40 Mg Tab) [facility] Stop: 01/03/22 08:59 Last Admin: 12/05/21 08:14 Dose: 40 mg Documented by: Polyethylene Glycol (Polyethylene (Miralax) 17 Gm Pack) 17 gm PO DAILY PRN PRN Reason: Constipation Stop: 01/03/22 00:50 Vitamin D (Cholecalciferol 1,000 Units 25 Mcg Tab) 1,000 units PO [facility] Stop: 01/03/22 08:59 Last Admin: 12/05/21 08:13 Dose: 1,000 units Documented by: (1) Upper respiratory infection URI type: unspecified URI Qualified Code(s): J06.9 - Acute upper respiratory infection, unspecified
--- NOTE | 2021-12-05 14:03 | Cardiology Progress Note ---
Date of Service December 05, 2021 Assessment & Plan (1) SVT (supraventricular tachycardia): (2) Substernal chest pain: (3) Hypertension: (4) HLD (hyperlipidemia): (5) GERD (gastroesophageal reflux disease): (6) Second degree AV block, Mobitz type II: (7) Chest pain: (8) CAD (coronary artery disease): Plan: The inciting event of her SVT was likely due to the patient taking prednisone and Levaquin. Obviously those have been discontinued. 2D echocardiogram shows no significant structural abnormalities and no significant laboratory abnormalities either. No further events overnight. Okay to DC to home on increased dose of metoprolol. My office will call to arrange follow-up as an outpatient in the next few weeks. Admission and Anticipated Discharge Date Admission Date: December 03, 2021 Subjective Patient seen and examined, chart reviewed. States that she feels well. No complaints overnight. Denies chest pain, shortness of breath, palpitations, lightheadedness, dizziness or syncope. Telemetry reviewed: AV paced. Review of Systems Review of Systems: All systems reviewed & are unremarkable except as noted in HPI & below Physical Exam Physical Exam: General: Awake, alert and oriented x 3. No acute distress. HEENT: Normocephalic, atraumatic. Pupils equal, round and reactive to light and accommodation. Extraocular muscles are intact. Anicteric sclera. Moist mucous membranes. Neck: No JVD. No bruit. Cardiovascular: Regular. Positive S-4. Normal S-1 and S-2. No S-3. No murmurs or rubs. Pulmonary: Clear to auscultation B/L. No rales, rhonchi or wheezing Abdomen: Bowel sounds x 4, soft. No rebound, guarding or tenderness. No organomegaly. Extremities: No clubbing, cyanosis or edema. +2 pedal pulses bilaterally. Skin: Warm and dry. Results & Data ([facility]) Vital Signs (Past 12 Hours) Vital Signs Temp Pulse Pulse Resp BP Pulse Ox 12/05/21 08:19 36.9 C 71 22 134/82 93 12/05/21 07:42 66 12/05/21 07:39 36.4 C L 69 20 113/66 94 12/05/21 04:02 38.7 C H 72 18 128/76 98 (1) Chest pain Chest pain type: unspecified Qualified Code(s): R07.9 - Chest pain, unspecified
--- NOTE | 2021-12-06 06:48 | Electrocardiogram Report ---
Test Reason : Blood Pressure : / mmHG Vent. Rate : 067 BPM Atrial Rate : 067 BPM P-R Int : 168 ms QRS Dur : 074 ms QT Int : 400 ms P-R-T Axes : 033 014 044 degrees QTc Int : 422 ms Normal sinus rhythm Normal ECG When compared with ECG of 04-DEC-2021 05:51, No significant change was found Confirmed by Esau Miguel ([id number]) on 12/06/2021 6:47:40 AM Referred By: REFERRED SELF Confirmed By:Esau Miguel
--- NOTE | 2021-12-06 08:02 | Discharge Summary ---
Date of Service December 06, 2021 Admission HPI Per Admitting Provider DICTATED BY:Rafael Domínguez MD DATE OF ADMISSION: 12/03/2021. CHIEF COMPLAINT: SVT. HISTORY OF PRESENT ILLNESS: This is an 81-year-old female with past medical history significant for hyperlipidemia, allergic rhinitis, hypertension, history of near syncope, history of second-degree AV block, status post pacemaker, history of diverticulitis of colon, GERD, osteoarthrosis, diffuse cystic mastopathy, who lives at home alone, comes because of SVT. The patient says he is having cold symptoms for the last 1 week.. Initially, she had a very severe sore throat but that is better, has runny nose and cough. Denies any fever or chills. Says it is not getting better. She called the family doctor and she was prescribed prednisone and Levaquin today. She did a home COVID test and it was negative and in the afternoon, she took the prednisone and Levaquin and she went to sleep and when she woke up, she was feeling palpitations and f chest discomfort, not feeling well and weak, fatigued. She checked in the monitor, her heart rate was 166. She called up her [id number] and she checked again heart rate and was 170, when they decided to come to the ER. En route in the ambulance, she was given 2 doses of adenosine, which broke her heart rate into 110s. In the ER, after fluids, she is currently resting comfortably and hemodynamically stable and heart rate is in regular rhythm at a rate of 80s and 90s. Currently, chest pain got resolved. No shortness of breath, no headache, no blurred visions. Appetite is not that great since the last 1 week. No difficulty swallowing. No nausea, no vomiting. Today, she had one episode of diarrhea that resolved. At that time, she had abdominal discomfort that is resolved now. She is peeing a lot because she is drinking a lot of fluids since last 1 week and she is not eating much. No burning micturition. No hematuria. No blood in stools or black stools. Admission Exam Per Admitting Provider GENERAL: The patient is of moderate build, not in acute distress. VITAL SIGNS: Temperature 37.2, pulse 90, respiratory rate 18, blood pressure 144/74, oxygen 95% on room air. HEENT: Pupils equal, round and reactive to light. Oral mucosa moist. NECK: No JVD, no neck masses. CARDIOVASCULAR: S1 and S2 heard. Regular rate and rhythm. No murmur, no gallop. RESPIRATORY SYSTEM: Normal AP diameter. No accessory muscle use. No wheezing, no crackles. ABDOMEN: Soft, bowel sounds present, nontender, no distention. CENTRAL NERVOUS SYSTEM: Cranial nerves II through XII are grossly intact, nonfocal. EXTREMITIES: bilateral lower extremity edema present, no erythema seen. Principal Diagnosis SVT, hypertension, hyperlipidemia, CAD Discharge Exam Lying in bed comfortably Constitutional well developed, well nourished, + ill appearing and + obese Eyes PERRL, conjunctivae normal, anicteric sclerae ENMT external ear and nose normal, oropharynx normal Neck trachea midline, no thyromegaly Respiratory no respiratory distress Auscultation: lungs clear to auscultation bilaterally Cardiovascular Rate/Rhythm: regular rate and regular rhythm; not tachycardic Heart Sounds: normal S1 and normal S2; no murmur Extremities: no edema Gastrointestinal (Abdomen) Inspection/Auscultation: normal bowel sounds; abdomen not distended Percussion/Palpation: abdomen soft; abdomen nontender Discharge Data Allergies Allergy/AdvReac Type Severity Reaction Status Date / Time amoxicillin Allergy Intermediate ITCHY HIVES Verified 12/03/21 22:40 Sulfa (Sulfonamide Allergy Intermediate ITCHY HIVES Verified 12/03/21 22:40 Antibiotics) sulfasalazine Allergy Intermediate ITCHY HIVES Verified 12/03/21 22:40 vancomycin Allergy Intermediate UNKNOWN Verified 12/03/21 22:40 hylan G-F 20 Allergy Unknown UNKNOWN Verified 12/03/21 22:40 Consultations 12/03/21 22:53 ED Decision to Admit Stat 12/04/21 08:00 Consult Cardiology Routine Hospital Course (1) SVT (supraventricular tachycardia): Admitted with a.m. palpitation with a heart rate of 160 Likely contributed by use of prednisone plus Levaquin as an outpatient Received 2 doses of adenosine in the ambulance She remained in sinus rhythm as of this morning Appreciate cardiology input and recommendation Beta-james doses have been increased No more arrhythmias and no more SVT Has had episode of flushing without any significant hemodynamic instability The patient thinks due to dehydration and following drinking more fluid the condition resolved completely Will be discharged home this afternoon (2) Paroxysmal supraventricular tachycardia: History of paroxysmal supraventricular tachycardia (3) Upper respiratory infection: Has been complaining of runny nose sneezing Likely has sinus infection Cannot take any penicillin Will try doxycycline-congestive symptoms are better and sinus pain and pressure improved (4) Hypertension: Blood pressure is controlled (5) HLD (hyperlipidemia): Continue statin DVT prophylaxis Subcu Lovenox CODE STATUS Full Likely discharge this afternoon Total Time Total Time Spent Total Time Spent (In Minutes): 35 minutes Discharge Plan Discharge Items Patient Disposition: Home - Self-Care Reason For Visit: Tachycardia Discharge Diagnosis: SVT, hypertension, hyperlipidemia, CAD Condition on Discharge: Good Activity: Resume your previous activity Non-emergency contact: Primary Care Provider Call non-emergency contact if: you have any medication questions and your symptoms worsen Follow-up/Referrals: Antonio Luther [Primary Care Provider] - (Please make an appointment with your primary care physician within 7 days) Diet: Heart Healthy Addtl Attending Provider Instructions: Please take precautions to avoid fall Take your medications as advised Your metoprolol doses have been increased Please finish the course of antibiotic Do not take prednisone and Levaquin until further instruction from your PCP Pending Studies at Discharge: No Stand-Alone Forms: My [employer], Smoking Cessation Medications and DC Order Prescriptions: New doxycycline hyclate 100 mg Capsule 100 mg PO BID 5 Days Qty: 10 RF: 0 metoprolol succinate 25 mg Tablet Extended Release 24 Hr 25 mg PO BID 30 Days Qty: 60 RF: 0 Continued celecoxib [Celebrex] 200 mg capsule 200 mg PO DAILY PRN (Reason: Pain) RF: 0 multivitamin Tablet 1 tab PO QAM RF: 0 atorvastatin 10 mg Tablet 10 mg PO HS RF: 0 pantoprazole 20 mg Tablet,Delayed Release (Dr/Ec) 20 mg PO QAM RF: 0 cholecalciferol (vitamin D3) [Vitamin D3] 25 mcg (1,000 unit) Tablet 25 mcg PO QAM RF: 0 albuterol sulfate [Proventil HFA] 90 mcg/actuation Hfa Aerosol Inhaler 1 puff INHALATION QID PRN (Reason: Shortness Of Breath) RF: 0 Discontinued metoprolol succinate 25 mg tablet extended release 24 hr 25 mg PO HS RF: 0 prednisone 10 mg tablet 0 mg PO DAILY RF: 0 metronidazole 500 mg tablet 500 mg PO BID RF: 0 levofloxacin 500 mg tablet 500 mg PO DAILY RF: 0 Discharge Orders: Discharge Order (Routine); Ordered 12/05/21 Ordered By: Ilan Mckee Admission Data Admit Date/Time: 12/03/21 23:55 Attending Provider: Ilan Mckee Admit Provider: Rafael Domínguez Primary Care Provider: Antonio Luther Other Providers: Rafael Domínguez ; Nabor Hampton ; Michael Hammer ; Benigno Smith ; Theo Medeiros ; Bobby Heredia ; Raymond Pena ; Bárbara Mclean ; Clarisse Ba ; Slime Aguilar ; Mike Lee Other Interventions: Discharge Summary Assessment (RN) Last Done: 12/05/21 14:42
== END 2021-12-05 15:45 | disposition home or self-care (01) | DRG 310 ==
LOC: ED 21:43 → 2S 23:55

== ENCOUNTER 2023-01-27 08:02 | Observation (INO) ==
--- NOTE | 2022-10-19 10:07 | PAT Medication Instructions ---
Medication Instructions Date of Service October 19, 2022 Home Medications albuterol sulfate 90 mcg/actuation aerosol inhaler (Proventil HFA) 1 puff inhalation QID PRN Shortness Of Breath atorvastatin 10 mg tablet 10 mg PO HS cholecalciferol (vitamin D3) 25 mcg (1,000 unit) tablet (Vitamin D3) 25 mcg PO QAM multivitamin 1 tab PO QAM pantoprazole 20 mg tablet,delayed release 20 mg PO QAM celecoxib 200 mg capsule (Celebrex) 200 mg PO DAILY PRN Pain metoprolol succinate 25 mg tablet,extended release 24 hr 25 mg PO BID furosemide 20 mg tablet 20 mg PO Q2D prednisone 20 mg tablet 10 mg PO QAM trazodone 50 mg tablet 50 mg PO HS ASK your surgeon for instructions celecoxib 200 mg capsule (Celebrex) 200 mg PO DAILY PRN Pain DO NOT take the morning of surgery cholecalciferol (vitamin D3) 25 mcg (1,000 unit) tablet (Vitamin D3) 25 mcg PO QAM multivitamin 1 tab PO QAM furosemide 20 mg tablet 20 mg PO Q2D Take morning of surgery With a small sip of water, OTHERWISE NOTHING TO EAT OR DRINK AFTER MIDNIGHT: albuterol sulfate 90 mcg/actuation aerosol inhaler (Proventil HFA) 1 puff inhalation QID PRN Shortness Of Breath (use if needed; please bring rescue inhaler with you to hospital day of surgery if possible) pantoprazole 20 mg tablet,delayed release 20 mg PO QAM metoprolol succinate 25 mg tablet,extended release 24 hr 25 mg PO BID prednisone 20 mg tablet 10 mg PO QAM Take evening before surgery albuterol sulfate 90 mcg/actuation aerosol inhaler (Proventil HFA) 1 puff inhalation QID PRN Shortness Of Breath (if needed) atorvastatin 10 mg tablet 10 mg PO HS metoprolol succinate 25 mg tablet,extended release 24 hr 25 mg PO BID trazodone 50 mg tablet 50 mg PO HS Other Notes If you have any questions please call us at [phone] or [phone] or [phone] or [phone]
--- NOTE | 2022-10-24 12:58 | Anesthesiology Consultation ---
Date of Service October 24, 2022 Assessment & Plan (1) Encounter for pre-operative examination: - COVID screening: Per assessment on 10/24: No known COVID-19 positive contacts or current COVID-19 related symptoms. Travel screen negative. Patient vaccinated. At surgeon discretion if preop Covid testing being done. - Outpatient joint assessment: Pt currently scheduled for inpatient pathway. If surgeon requests review for outpatient joint pathway, patient is not recommended candidate for outpatient joint program from anesthesia standpoint. - Cardiology note (10/11/22): "nuclear stress test reveals normal blood flow to the heart.. These findings are reassuring.. Continue present treatment. Patient stable for upcoming proposed shoulder surgery with Dr. Giles, [facility] [place] within estimated low risk of perioperative cardiac complication. Standard care with regards to electrocautery should be utilized given her history of pacemaker and intermittent atrial ventricular block." - Pacer rep request ([employer]): Hamida/OR made aware. Paulino with [employer] indicated that they will be present DOS unless change to their schedule- if change in their schedule that will require issue with current DOS, he states he will contact us VINAYAK. Chart Review Chart Review: Acceptable Risk for Surgery and Patient seen in Pre Admission Testing History Surgery Operation Date: 11/25/22 10:25 Proposed Procedures p Left Total Shoulder Arthroplasty Reverse - Enrique Giles, Height/Weight Height: 5 ft Weight: 79.6 kg Allergies Allergy/AdvReac Type Severity Reaction Status Date / Time amoxicillin Allergy Intermediate Itchy, Verified 10/19/22 10:12 hives Sulfa (Sulfonamide Allergy Intermediate Itchy, Verified 10/19/22 10:12 Antibiotics) hives sulfasalazine Allergy Intermediate Itchy, Verified 10/19/22 10:12 hives hylan G-F 20 Allergy Unknown Unknown Verified 10/19/22 10:12 vancomycin Allergy Unknown Unknown Verified 10/19/22 10:12 ("can't remember") Medications Home Medications Medication Instructions Recorded Confirmed Last Taken albuterol sulfate 90 mcg/actuation 1 puff inhalation QID PRN 03/16/20 10/19/22 01/29/22 aerosol inhaler (Proventil HFA) Shortness Of Breath atorvastatin 10 mg tablet 10 mg PO HS 03/16/20 10/19/22 01/30/22 cholecalciferol (vitamin D3) 25 25 mcg PO QAM 03/16/20 10/19/22 01/30/22 mcg (1,000 unit) tablet (Vitamin D3) multivitamin 1 tab PO QAM 03/16/20 10/19/22 01/30/22 pantoprazole 20 mg tablet,delayed 20 mg PO QAM 03/16/20 10/19/22 01/31/22 06:30 release celecoxib 200 mg capsule (Celebrex) 200 mg PO DAILY PRN Pain 08/10/21 10/19/22 01/30/22 metoprolol succinate 25 mg 25 mg PO BID 01/12/22 10/19/22 01/31/22 06:30 tablet,extended release 24 hr furosemide 20 mg tablet 20 mg PO Q2D 10/19/22 10/19/22 Unknown prednisone 20 mg tablet 10 mg PO QAM 10/19/22 10/19/22 Unknown trazodone 50 mg tablet 50 mg PO HS 10/19/22 10/19/22 Unknown Past Medical History Medical History (Updated 10/24/22 @ 14:07 by Anabella Mora) CAD (coronary artery disease) Very minimal non-obstructive CAD per 11/2020 cardiac cath Chronic obstructive pulmonary disease Depression GERD (gastroesophageal reflux disease) History of diverticulitis History of implanted metallic device Left ear metal piston HLD (hyperlipidemia) Hypertension Left hip pain Pacemaker Dual chamber PPM, Implanted 2013, [employer] Follows with [facility] Paroxysmal supraventricular tachycardia Second degree AV block, Mobitz type II PPM placed 2013 Exercise / Class Metabolic Activity III < 4 Walking/Shop/Light housework Past Family History Family History Mother Diabetes Stroke Sister Breast cancer Lung cancer Other No family history of adverse response to anesthesia Past Surgical History Surgical History History of breast biopsy left > benign History of cataract surgery R/L History of colonoscopy History of elbow surgery left History of esophagogastroduodenoscopy (EGD) History of hysterectomy History of repair of hiatal hernia Approximately 2007 History of surgery on wrist bilat for breaks from fall History of tooth extraction History of total knee replacement R/L Hx of cardiac cath 2020 > no stents S/P carpal tunnel release (~2019) right Past Anesthesia History No Hx of Anesthesia Complications and No Family Hx of Anesthesia Complications History of PONV No Hx of PONV and No Hx of Motion Sickness Social History Smoking Status: Never smoker Do You Dip or Chew Tobacco: No Hx Alcohol Use: Yes Alcohol type: wine alcohol intake frequency: holidays/special occasions only Hx Substance Use: No substance use type: does not use Review of Systems Patient denies chest pain, shortness of breath, fever, chills, cough, wheezing, palpitations. Physical Exam Vital Signs VITALS BP 122/72 P 69 TEMP 98.2 SP02 95%RA RESP 16 PHYSICAL Full cervical extension range of motion. Full TMJ range of motion. TMD 4 finger breaths Mallampati Score 1 Dentition: upper/lower partials Lungs: clear throughout to auscultation Cardiac: regular rate and rhythm, no murmurs noted Spine: normal Carotid arteries: negative bruit Extremities: no edema Lab Results Anesthesia Preop Results Results Anesthesia Widget: 2 WBC 11.04 K/ul (4.8-10.8) H 10/24/22 Hgb 12.7 g/dl (12.0-16.0) 10/24/22 Hct 37.6 % (34.1-44.9) 10/24/22 Plt 219 K/uL (130-400) 10/24/22 Na 141 mmol/L (136-145) 10/24/22 K 4.3 mmol/L (3.5-5.1) 10/24/22 Cl 106 mmol/L (98-107) 10/24/22 CO2 27 mmol/L (21-32) 10/24/22 BUN 25 mg/dl (6-23) H 10/24/22 Creat 0.91 mg/dl (0.6-1.2) 10/24/22 Glucose Level 146 mg/dl (70-99(Fasting)) H 10/24/22 PT 10.7 Seconds (9.0-12.0) 10/24/22 PTT 29.6 Seconds (21.0-31.0) 10/24/22 INR 1.0 (0.9-1.1) 10/24/22 Blood Type O Positive 10/24/22 Antibody Screen NEGATIVE 10/24/22 Testing Electrocardiogram Date: 10/06/22 Electronic atrial pacemaker at 63bpm. Chest X-Ray Date: 10/04/22 Left chest wall pacemaker device in place with leads terminating in the region of the right atrium and right ventricle. The lungs are clear. No active disease in chest. Echocardiogram Date: 09/29/22 LVEF 60%. No regional motion abnormality. Mild concentric LVH. Grade 1 diastolic dysfunction. Mild MR/TR. Stress Test Date: 10/11/22 Current low intensity exercise/Lexiscan myocardial perfusion imaging study is normal without evidence of scar inducible ischemia. Gated SPECT imaging reveals normal myocardial thickening and wall motion. LVEF calculated to be greater than 70%. 90% MPHR. Other Testing Pacer check (07/12/22) [employer]. AP 20.4%. RVP 0%. Battery longevity 12.3 years. Magnet rate of 85 bpm. Mode AAIR <=> DDDR. IMPRESSION: Normal dual chamber pacemaker function. Adequate battery reserve COVID-19 Risk Screen Screening Information COVID-19 Screen Date: 10/24/22 Exposure 21 Days Family/Household +COVID Last 21 Days: No Exposure 10 Days Any COVID Exposure Last 10 Days: No Symptoms Last 10 Days Experienced COVID Sx Last 10 Days: No + COVID 0-90 Days COVID + in Last 0-90 Days: No
--- NOTE | 2023-01-26 13:09 | History & Physical Report ---
Date of Service January 26, 2023 Assessment & Plan (1) Osteoarthritis of left shoulder: We will proceed with a left reverse shoulder arthroplasty. Postoperatively she will be placed in a sling and kept overnight for postoperative medical management. She plans to have the hospital set up home health before discharge. History of Present Illness Chief Complaint: Cuff tear arthropathy of the left shoulder. Primary Care Provider: Antonio Toscanodolores Faulkner is a pleasant 82-year-old female whom I have been treating for advanced osteoarthritis of herleft shoulder. I havebeen giving her serial injections. The injections are no longer helping. She is having trouble doing anything away from her body or up overhead. X-rays and clinical examination have been diagno stic for severe osteoarthritis. After failing conservative treatment, she has elected proceed with a left reverse shoulder arthroplasty. Allergies Allergy/AdvReac Type Severity Reaction Status Date / Time amoxicillin Allergy Intermediate Itchy, Verified 01/16/23 11:27 hives hylan G-F 20 Allergy Intermediate knee Verified 01/16/23 11:27 swelling levofloxacin [From Levaquin] Allergy Intermediate Hives Verified 01/16/23 11:27 Sulfa (Sulfonamide Allergy Intermediate Itchy, Verified 01/16/23 11:27 Antibiotics) hives sulfasalazine Allergy Intermediate Itchy, Verified 01/16/23 11:27 hives vancomycin Allergy Unknown Unknown Verified 01/16/23 11:27 ("can't remember") Home Medications Medication Instructions Recorded Confirmed Type albuterol sulfate 90 mcg/actuation 1 puff inhalation QID PRN 03/16/20 01/16/23 History aerosol inhaler (Proventil HFA) Shortness Of Breath atorvastatin 10 mg tablet 10 mg PO HS 03/16/20 01/16/23 History cholecalciferol (vitamin D3) 25 25 mcg PO QAM 03/16/20 01/16/23 History mcg (1,000 unit) tablet (Vitamin D3) multivitamin 1 tab PO QAM 03/16/20 01/16/23 History pantoprazole 20 mg tablet,delayed 20 mg PO QAM 03/16/20 01/16/23 History release celecoxib 200 mg capsule (Celebrex) 200 mg PO DAILY PRN Pain 08/10/21 01/16/23 History metoprolol succinate 25 mg 25 mg PO BID 01/12/22 01/16/23 History tablet,extended release 24 hr furosemide 20 mg tablet 20 mg PO Q2D 10/19/22 01/16/23 History trazodone 50 mg tablet 50 mg PO HS 10/19/22 01/16/23 History Past Med/Surg History Medical History CAD (coronary artery disease) Very minimal non-obstructive CAD per 11/2020 cardiac cath Chronic obstructive pulmonary disease Depression GERD (gastroesophageal reflux disease) History of diverticulitis History of implanted metallic device Left ear metal piston HLD (hyperlipidemia) Hypertension Left hip pain Pacemaker Dual chamber PPM, Implanted 2013, [employer] Follows with [facility] Paroxysmal supraventricular tachycardia Pneumonia hx of 11/2022--pt states she is better, gets slight SOB with exertion Second degree AV block, Mobitz type II PPM placed 2013 Surgical History History of breast biopsy left > benign History of cataract surgery R/L History of colonoscopy History of elbow surgery left History of esophagogastroduodenoscopy (EGD) History of hysterectomy History of repair of hiatal hernia Approximately 2007 History of surgery on wrist bilat for breaks from fall History of tooth extraction History of total knee replacement R/L Hx of cardiac cath 2020 > no stents S/P carpal tunnel release (~2019) right Family History Mother Diabetes Stroke Sister Breast cancer Lung cancer Other No family history of adverse response to anesthesia Social History Smoking Status: Never smoker Second Hand Exposure: No; Do You Dip or Chew Tobacco: No; Tobacco Cessation Education Requested by Patient: No Hx Alcohol Use: Yes Alcohol type: wine Hx Substance Use: No Preferred Language: [place] Communication Ability: Effective Technology Development Intern Required: No Beliefs That Will Affect Care: None marital status: / Current Living Situation: Alone Other Information That Helps Us Care for You: No Feels Safe at Home: Yes Safety Concerns: Feels Safe At This Time Assistive Devices: Glasses Assistive Devices Comment: PARTIAL PLATES Review of Systems All systems reviewed & are unremarkable except as noted in HPI & below. Physical Exam On physical examination of the left shoulder, she has decreased range of motion weakness throughout. She has pain over the glenohumeral joint line.. Constitutional WD/WN, vitals as above Eyes PERRL, conjunctivae normal, anicteric sclerae ENMT external ear and nose normal, oropharynx normal Neck trachea midline, no thyromegaly Respiratory normal respiratory effort, lungs clear to auscultation Cardiovascular RRR, no murmur, no edema Gastrointestinal (Abdomen) normal bowel sounds, soft, nontender, no hepatosplenomegaly Skin no rashes, warm and dry Psychiatric A+Ox3, euthymic affect Results & Data Results & Data Laboratory Results . Diagnostic Findings X-rays of the left shoulder show advanced osteoarthritis with joint space narrowing, osteophyte formation, and [id number] articulation.. PG Care Time/CCT Total # of Minutes Spent Total Time Spent with Patient: Total time spent is greater than 50% in coordination of care (as documented) at patient's floor/unit and/or counseling patient: Coding Level of Care Code None Diagnoses Osteoarthritis of left shoulder M19.012
[~2023-01-27 08:02] MED LIST changes: +ACETAMINOPHEN 500 MG TAB PO SCH; +ALLERGY Noted to ORDERED Medication SCH; +BUPIVACAINE 0.5 % 5 MG/1 ML PF 10ML VIAL ONE; -CLINDAMYCIN 600 MG/54 ML BAG IV SCH; +FAMOTIDINE 20 MG TAB PO SCH; +GABAPENTIN 300 MG CAP PO SCH; -LR 15ML/HR IV SCH; +LR 60ML/HR IV SCH; +ORTHO JOINT MIX INFIL SCH; +TRANEXAMIC ACID 1,000 MG **IV Intra-op IV SCH; +TRANEXAMIC ACID 1,000 MG **IV Pre-op IV SCH; +dexAMETHasone 4 MG TAB PO SCH
[2023-01-27] MEDS ORDERED: ONDANSETRON INJ 2 MG/ML 2 ML VIAL ONE (08:36)
[2023-01-27] MEDS ORDERED: LIDOCAINE 2% MPF LOCAL 5 ML VIAL ONE (08:36)
[2023-01-27] MEDS ORDERED: fentaNYL citrate PF 100 MCG/2 ML VIAL ONE (08:36)
[2023-01-27] MEDS ORDERED: ROCURONIUM BROMIDE 10 MG/ML 5 ML VIAL IV ONE (08:36)
[2023-01-27] MEDS ORDERED: PROPOFOL IV EMULSION 10 MG/ML 20 ML VIAL IV ONE (08:36)
--- NOTE | 2023-01-27 09:11 | History & Physical Bridge Note ---
Date of Service January 27, 2023 History & Physical Bridge Note I have examined the patient, reviewed the History & Physical and in the interval since the performance of the History & Physical I have noted the following changes of clinical significance: no changes noted
[2023-01-27 09:12] LABS: Basophils # (auto) 0.04 K/uL (0-0.2); Basophils % (auto) 0.6 %; Eosinophils # (auto) 0.29 K/uL (0-0.50); Eosinophils % (auto) 4.5 %; Hematocrit (blood only) 35.1 % (37.0-47.0); Hemoglobin 11.7 g/dl (12.0-16.0); Immature Granulocytes # (auto) 0.02 K/uL (0.01-0.20); Immature Granulocytes % (auto) 0.3 %; Lymphocytes # (auto) 1.09 K/uL (1.2-3.4); Lymphocytes % (auto) 16.9 %; Mean Corpuscular Hemoglobin 32.2 pg (25.0-34.0); Mean Corpuscular Hgb Conc 33.3 g/dL (32.0-36.0); Mean Corpuscular Volume 96.7 fL (80.0-100.0); Mean Platelet Volume 10.2 fL (9.4-12.4); Monocytes # (auto) 0.43 K/uL (0.11-0.59); Monocytes % (auto) 6.7 %; Neutrophils # (auto) 4.58 K/uL (1.40-6.50); Platelet Count 190 K/uL (130-400); RDW Coefficient of Variation 12.6 % (11.5-14.5); RDW Standard Deviation 44.8 fL (36.4-46.3); Red Blood Count 3.63 M/uL (4.20-5.40); White Blood Count 6.45 K/ul (4.8-10.8)
[2023-01-27] MEDS ORDERED: ceFAZolin 2,000 MG/15 ML IV PUSH IV ONE (09:16)
[2023-01-27 09:25] LABS: BUN Creatinine Ratio 20.5 (10-20); Calcium 9.1 mg/dl (8.6-10.3); Creatinine Clr Calc Pharmacy 53.1 ml/min; Est GFR (African American) 82.6 ml/min; Est GFR (Non-African American) 71.3 ml/min; Potassium 4.5 mmol/L (3.5-5.1)
[2023-01-27 09:47] LABS: Partial Thromboplastin Time 29.1 Seconds (21.0-31.0); Prothrombin Time 10.9 Seconds (9.0-12.0)
[2023-01-27] MEDS ORDERED: ALBUT/IPRATROP 3MG/0.5MG NEB 3 ML VIAL INH STA (09:48)
[2023-01-27] MEDS ORDERED: ONDANSETRON INJ 2 MG/ML 2 ML VIAL IV PRN ×2 (09:49→13:22)
[2023-01-27] MEDS ORDERED: fentaNYL citrate PF 100 MCG/2 ML VIAL IV PRN (09:49)
[2023-01-27] MEDS ORDERED: MEPERIDINE HCL 25 MG/ML CARP/VIAL IV PRN (09:49)
[2023-01-27] MEDS ORDERED: ALBUTEROL 0.083% NEBU SOLN 3 ML VIAL INH PRN (09:49)
[2023-01-27] MEDS ORDERED: MoRPHine SULFATE 10 MG/ML CARP/VIAL IV PRN (09:49)
[2023-01-27] MEDS ORDERED: ePHEDrine sulfate 50 MG/ML AMP IV PRN (09:49)
[2023-01-27] MEDS ORDERED: ATROPINE SULFATE 0.1 MG/ML 10ML SYR IV PRN (09:49)
[2023-01-27] MEDS ORDERED: ORTHO JOINT ANESTHETIC ONE (10:03)
[2023-01-27] MEDS ORDERED: MIDAZOLAM HCL 1 MG/ML 2ML VIAL ONE (10:07)
--- NOTE | 2023-01-27 11:39 | Operative Report ---
PG Post Operative Report Pre & Post Diagnosis Operation Date: 01/27/23 10:30 Pre-Op Diagnosis: Left Shoulder Degenerative Joint Disease with tendinopathy long head of biceps tendon Post-Op Diagnosis: Left Shoulder Degenerative Joint Disease with tendinopathy long head biceps tendon I identified the patient and participated in the time-out.: Yes Procedure Operation Date: 01/27/23 10:30 Actual Procedures p Left Total Shoulder Arthroplasty Reverse(Left) with open biceps tenodesis as a distinct and separate procedure (modifier 59)- Enrique iGles DO Surgeon Enrique Giles DO Infant Toddler Lead Teacher Enrique White PA-C Estimated Blood Loss 150 Findings Consistent with Post-Op Diagnosis Specimens Left humeral head Description of Procedure A CPT code modifier 59: The long head of the biceps tendon was enlarged and inflamed consistent with tendinopathy. A tenodesis was opted. This was a separate and distinct portion of the procedure. For these reasons, a CPT code modifier 59 will be added to this case. Implants used: I used a [employer] Comprehensive reverse total shoulder arthroplasty system with a size 9 press fit micro humeral stem, a +6 offset humeral tray and a standard humeral bearing, a 25 mm medium augment baseplate with a 6.5 mm central screw and superior and inferior locking screws, and a size 36 mm eccentric glenosphere. Lucie arrived at [facility] for the above procedure. She was seen in the preoperative holding area and the operative extremity was identified and signed. She was given a preoperative antibiotic, TXA, and an interscalene nerve block. She was taken back to the operating room, laid on table in supine position, and put under general anesthesia. She was then put into the beachchair position. The shoulder was then prepped and draped in sterile fashion. A timeout was done and the patient and the operative extremity was properly identified. A deltopectoral approach was used. Dissection was taken down through the fascia and the deltoid was retracted laterally and the conjoined tendon was retracted medially. The anterior shoulder was exposed. The biceps groove was opened up and the biceps tendon was examined extensively. The biceps tendon demonstrated enlargement and inflammatory changes consistent with longstanding inflammation in the context of osteoarthritis and cuff arthropathy. The long head of the biceps tendon was then tenodesed to the upper border of the pectoralis major. This was a separate and distinct portion of the procedure. The subscapularis was then directly released off the lesser tuberosity with a peel technique. The inferior capsule was released and the humeral head was dislocated. A canal finding reamer was sent down the center of the humeral canal. Sequential reaming up to a size 9 reamer was done. Off that reamer, a proximal humeral resection guide was placed. The proximal humerus was resected at 135 of inclination and 25 of retroversion. Osteophytes were then removed and the glenoid was exposed. Time was spent doing a complete capsular and labral release. The glenoid guide was then placed in the inferior aspect of the glenoid. A 3.2 mm Steinmann pin was then placed into the glenoid vault at 10 of inclination. The glenoid baseplate was then reamed. The final size 25 mm medium augment baseplate was then impacted in the place. A 6.5 mm central screw was then placed followed by superior and inferior locking screws. A 36 mm eccentric glenosphere was then impacted into place. Surrounding soft tissues were then injected with 100 cc an orthopedic pain control cocktail. The proximal humerus was then exposed. Sequential broaching of the humerus up to a size 9 broach was done. Off that broach a +6 offset humeral tray was trialed. The shoulder was then reduced, brought through a full range of motion, and felt to be stable. The shoulder was then dislocated and the broach was removed. The final size 9 micro press-fit humeral stem was then impacted into place. A standard humeral bearing was then snapped onto a +6 offset humeral tray. The humeral tray was then impacted onto the humeral stem. The shoulder was once again reduced, brought through a full range of motion, and felt to be stable. The subscapularis was retracted and unable to be repaired. A dilute betadyne lavage was then done for 3 minutes. The joint was then irrigated with normal saline solution. Hemostasis was obtained. The interval was closed with 2-0 Vicryl suture. The skin was then closed with 2-0 Vicryl and glenroy. A Silverlon dressing was placed and the arm was rested in a regular arm sling. She was then extubated and transferred to a hospital bed. She taken to the postanesthesia care unit in stable condition. She tolerated the procedure well. Enrique White PA-C, was present for the entire procedure. He was critical for patient positioning, prepping, draping, retraction exposure, wound closure and application of sterile dressing. I attest to the content of the Intraoperative Record and any orders documented therein. Any exceptions are noted below.
--- NOTE | 2023-01-27 12:41 | Anesthesiology Progress Note ---
Date of Service January 27, 2023 Anesthesia Post Procedure Vital Signs Vital Signs: Temp Pulse Pulse Resp BP Pulse Ox O2 Del Method 01/27/23 12:30 84 16 124/63 96 Nasal Cannula 01/27/23 12:20 85 17 117/72 93 Nasal Cannula 01/27/23 12:10 85 15 128/67 97 Nasal Cannula 01/27/23 12:00 36.1 C L 82 12 129/75 96 Nasal Cannula 01/27/23 09:56 84 18 96 Room Air 01/27/23 09:10 36.4 C L 84 20 153/80 H 95 Room Air 01/27/23 09:03 Room Air O2 Flow Rate 01/27/23 12:30 5 01/27/23 12:20 5 01/27/23 12:10 7 01/27/23 12:00 9 01/27/23 09:56 01/27/23 09:10 01/27/23 09:03 Transfer of Care Handoff Completed per policy Notes Mental Status: alert / awake / arousable Patient Amnestic to Procedure: Yes Nausea / Vomiting: adequately controlled Pain: adequately controlled Airway Patency, RR, SpO2: stable & adequate BP & HR: stable & adequate Hydration State: stable & adequate Anesthetic Complications: no major complications apparent and Pt Satisfied with anesthetic care
[2023-01-27] MEDS ORDERED: NALOXONE HCL 0.4 MG/1 ML VIAL/CARP IV PRN (13:22)
[2023-01-27] MEDS ORDERED: bisacodyL 10 MG SUPP PR PRN (13:22)
[2023-01-27] MEDS ORDERED: ALBUTEROL HFA 8 GM INHALER INH PRN (13:22)
[2023-01-27] MEDS ORDERED: MAGNESIUM HYDROXIDE SUSP 30 ML UDC PO PRN (13:22)
[2023-01-27] MEDS ORDERED: HYDROmorphone INJ 0.5 MG/0.5 ML SYR IV PRN (13:22)
[2023-01-27] MEDS ORDERED: FUROSEMIDE 20 MG TAB PO SCH (13:22)
[2023-01-27] MEDS ORDERED: METOCLOPRAMIDE HCL INJ 5 MG/ML 2 ML VIAL IV PRN (13:22)
[2023-01-27] MEDS ORDERED: oxyCODONE HCL IR 5 MG TAB (IMMEDIATE RELEASE) PO PRN (13:22)
--- NOTE | 2023-01-27 14:52 | XRay Report ---
XR shoulder LT min 2V routine CLINICAL HISTORY: Post shoulder surgery COMPARISON STUDY: None. FINDINGS: Status post reverse left total shoulder arthroplasty. The hardware appears intact. No fract ure or dislocation. Skin glenroy are in place. There is a partially visualized left-sided pacemaker. IMPRESSION: Status post reverse left total shoulder arthroplasty. No evidence for hardware complicat ion. ACT 112: Negative or not required by law. Electronically signed by: Mikhail Brown M.D. 01/27/2023 2:51 PM
[2023-01-27] MEDS: ACETAMINOPHEN 500 MG TAB PO SCH ×2 (15:47→22:52)
[2023-01-27] MEDS: SODIUM CHLORIDE 0.9% 1000ML 1,000 ML IV SCH ×2 (15:48→22:52)
[2023-01-27] MEDS: ceFAZolin 2000MG 2,000 MG/15 ML SYR IV SCH (17:57)
[2023-01-27] MEDS: METOPROLOL SUCC 25MG EXT REL TAB PO SCH (20:53)
[2023-01-27] MEDS: DOCUSATE SODIUM 100 MG CAP PO SCH (20:53)
[2023-01-27] MEDS ORDERED: ATORVASTATIN 10 MG TAB PO SCH (21:00)
[2023-01-27] MEDS ORDERED: SENNA 8.6 MG TAB PO SCH (21:00)
[2023-01-27] MEDS ORDERED: traZODone HCL 50 MG TAB PO SCH (21:00)
[2023-01-28] MEDS: ceFAZolin 2000MG 2,000 MG/15 ML SYR IV SCH (02:52)
[2023-01-28] MEDS ORDERED: dexAMETHasone 4 MG TAB PO SCH (08:00)
--- NOTE | 2023-01-28 08:35 | Orthopedic Progress Note ---
Date of Service January 28, 2023 Assessment & Plan (1) Status post reverse total replacement of left shoulder: Overall she is doing very well. She is not having much pain in the left shoulder. She will be seen by physical therapy today for ambulation and range of motion exercises. She can be discharged home later today. She will follow- up with orthopedics in 2 weeks. Subjective Lucie was seen and examined at bedside this morning. Overall she is doing v luis well. She is not having much pain in the left shoulder. The nerve block is still in effect.. Review of Systems All systems reviewed & are unremarkable except as noted in HPI & below. Physical Exam On physical examination of left shoulder, the dressing is clean and dry. She is wearing her sling as instructed. She does not have any motion of her hand or her wrist yet.. Results & Data Results & Data Laboratory Results . Diagnostic Findings Postoperative x-rays of the left shoulder show the prosthesis to be in anatomic alignment without any evidence of fracture, his cage, or loosening.. PG Care Time/CCT Total # of Minutes Spent Total Time Spent with Patient: Total time spent is greater than 50% in coordination of care (as documented) at patient's floor/unit and/or counseling patient: Coding Level of Care Code 63129 Post Operative Follow-Up Diagnoses Status post reverse total replacement of left shoulder Z96.612
--- NOTE | 2023-01-28 08:36 | Discharge Summary ---
Date of Service January 28, 2023 Admission HPI (Per Admitting) Lucie is a pleasant 82-year-old female whom I have been treating for advanced osteoarthritis of herleft shoulder. I havebeen giving her serial injections. The injections are no longer helping. She is having trouble doing anything away from her body or up overhead. X-rays and clinical examination have been diagnostic for severe osteoarthritis. After failing conservative treatment, she has elected proceed with a left reverse shoulder arthroplasty. Admission Exam (Per Admitting) On physical examination of the left shoulder, she has decreased range of motion weakness throughout. She has pain over the glenohumeral joint line.. Principal Diagnosis Same as "Discharge Diagnosis" noted below under Discharge Instructions. Discharge Exam On physical examination of left shoulder, the dressing is clean and dry. She is wearing her sling as instructed. She does not have any motion of her hand or her wrist yet.. Discharge Data Procedures Performed Operation Date: 01/27/23 10:30 Actual Procedures p Left Total Shoulder Arthroplasty Reverse(Left) - Enrique Giles DO Ordered Studies 01/27/23 05:00 US - OR guided needle placemen Routine Hospital Course (1) Status post reverse total replacement of left shoulder: On January [facility], 2023 [facility] reverse shoulder replaced without complication. She had a general anesthetic and a left interscalene nerve block. Postoperatively she was placed in a sling and transferred to the general orthopedic floors. Her hospital course was uneventful. On postop day #1, her vital signs were stable and her pain was well controlled. She was able to participate well with physical therapy doing ambulation and range of motion exercises. She was then discharged home. She will follow-up with orthopedics in 2 weeks. PG Care Time/CCT Total # of Minutes Spent Total Time Spent with Patient: Total time spent is greater than 50% in coordination of care (as documented) at patient's floor/unit and/or counseling patient: Discharge Plan Discharge Items Patient Disposition: Home - Home Health Services Reason For Visit: Left Shoulder Degenerative Joint Disease Discharge Diagnosis: Left reverse shoulder replacement Activity: As commented below Non-emergency contact: Surgeon Call non-emergency contact if: your wound has increased redness and your wound has increased drainage Follow-up/Referrals: Antonio Luther [Primary Care Provider] - Diet: Regular Addtl Attending Provider Instructions: Activity and Therapy Recommendations: * If you are using [facility] then therapy will be provided at your home until they feel you have accomplished all of your goals. * If you are using [facility] then Physical Therapy will be provided until they feel you are ready to start Outpatient Physical Therapy. * If you are not using home therapy then Outpatient Physical Therapy should start about 3-5 days from your day of surgery. Therapy will last about 8-12 weeks * Wear your sling for 3 weeks, unless otherwise instructed. You may remove your sling to shower and to dress, but otherwise, you should be in your sling at all times, including while sleeping * The shoulder replacement is very stable and you can use your hand while in the sling * You were shown a series of exercises in the hospital. Do these exercises daily including the exercises you were shown in physical therapy. Medications: * Narcotic You will likely be sent home from the hospital with a prescription for the narcotic pain medication that worked best throughout your stay. * Other medications may be prescribed for specific circumstances. If you have any questions, please call the office at . * Resume previous home medications unless otherwise instructed Dressing Care: Leave the Silverlon dressing in place for 7 days. After 7 days you may remove the dressing. If the incision is not draining then you may leave the glenroy open to air. If there is a little bit of drainage or if the glenroy are getting stuck on your clothing then cover the incision with a dry dressing. The glenroy will be removed at your 2 week follow-up appointment. Showering: You may shower with the Silverlon dressing in place. Do not let the shower spray hit the dressing directly. Pat the Silverlon dressing dry. If the dressing becomes wet underneath, then simply remove the dressing. Keep the incision dry until you are 7 days out from the day of surgery. After 7 days you may remove the Silverlon dressing and shower with the glenroy exposed. Let soapy water run over the glenroy and pat them dry. Do not scrub or soak the incision. Things To Watch For: * Drainage from the incision site that occurs more than one week after your surgery. * Increased redness at the incision site. * Fever above 102 degrees Fahrenheit. * Unusual chest pain or shortness of breath. * Call [facility] at with any of the above problems Follow-Up Visit: Follow-up with Dr. Giles's PA (Enrique White) 2-3 weeks after your day of surgery. He will remove your glenroy and answer any questions. If you have any additional questions or concerns, Dr Giles is usually in the office at the same time and will be available An appointment was probably scheduled when you signed-up for surgery in the office. If you have any questions call More detailed instructions as well as Frequently Asked Questions were provided in a folder by our office when you signed-up for surgery. Please review these instructions when you get home. If you have any further questions or concerns, please feel free to call the office at [phone] Pending Studies at Discharge: No Stand-Alone Forms: My [facility] [employer], Smoking Cessation Medications and DC Order Prescriptions: New tramadol 50 mg tablet 50 mg PO Q6H PRN (Reason: pain) Qty: 30 0RF Continued celecoxib [Celebrex] 200 mg capsule 200 mg PO DAILY PRN (Reason: Pain) multivitamin Tablet 1 tab PO QAM atorvastatin 10 mg Tablet 10 mg PO HS pantoprazole 20 mg Tablet,Delayed Release (Dr/Ec) 20 mg PO QAM cholecalciferol (vitamin D3) [Vitamin D3] 25 mcg (1,000 unit) Tablet 25 mcg PO QAM albuterol sulfate [Proventil HFA] 90 mcg/actuation Hfa Aerosol Inhaler 1 puff INHALATION QID PRN (Reason: Shortness Of Breath) metoprolol succinate 25 mg Tablet Extended Release 24 Hr 25 mg PO BID furosemide 20 mg Tablet 20 mg PO Q2D trazodone 50 mg Tablet 50 mg PO HS Admission Data Admit Date/Time: 01/27/23 11:59 Attending Provider: Enrique Giles Admit Provider: Enrique Giles Primary Care Provider: Antonio Luther Other Providers: Alfonso Gonzáles [facility]
[2023-01-28] MEDS ORDERED: MULTIVITAMIN TAB PO SCH (09:00)
[2023-01-28] MEDS: METOPROLOL SUCC 25MG EXT REL TAB PO SCH (09:13)
[2023-01-28] MEDS: ACETAMINOPHEN 500 MG TAB PO SCH (09:13)
[2023-01-28] MEDS: DOCUSATE SODIUM 100 MG CAP PO SCH (09:14)
== END 2023-01-28 11:45 | disposition home health service (06) ==
LOC: 3E 08:02 → ASU 08:02